=== PATIENT | female | born 1940 | race Caucasian/White ===

== ENCOUNTER 2016-08-15 23:00 | Emergency (ER) | payer MEDICARE ==
[2016-08-16 00:30] LABS: Basophils % (Auto) 0.8 % (0.0-1.8); Eosinophils % (Auto) 3.7 % (0.0-4.3); Hematocrit 41.5 % (30.3-42.9); Hemoglobin 13.7 gm/dl (10.1-14.3); Mean Corpuscular HGB Conc 33 % (30-34); Mean Corpuscular Hemoglobin 31 pg (28-32); Mean Corpuscular Volume 93 fl (79-97); Platelet Count 204 K/mm3 (140-440); Red Blood Count 4.46 M/mm3 (3.65-5.03); Red Cell Distribution Width 13.1 % (13.2-15.2); White Blood Count 5.8 K/mm3 (4.5-11.0)
[2016-08-16 00:38] LABS: Anion Gap 14 mmol/L; BUN/Creatinine Ratio 21.42; Blood Urea Nitrogen 15 mg/dL (7-17); Calcium 9.1 mg/dL (8.4-10.2); Carbon Dioxide 27 mmol/L (22-30); Chloride 99.9 mmol/L (98-107); Glucose 114 mg/dL (65-100); Potassium 4.3 mmol/L (3.6-5.0); Sodium 137 mmol/L (137-145)
[2016-08-16 01:30] LABS: Bilirubin,Urine NEG (Negative); Blood,Urine SM (Negative); Ketones,Urine NEG (Negative); Leukocyte Esterase,Urine TR (Negative); Nitrite,Urine NEG (Negative); Protein,Urine <15 mg/dL mg/dL (Negative); Urobilinogen,Urine < 2.0 mg/dL (<2.0)
--- NOTE | 2016-08-16 02:32 | Emergency Department Report ---
ED Chest Pain HPI - General Chief Complaint: Chest Pain Stated Complaint: COUGH/FATIGUE Time Seen by Provider: 08/16/16 02:01 Source: patient, family Mode of arrival: Ambulatory Limitations: Language Barrier - History of Present Illness Initial Comments: This is a 75-year-old woman with one-week history of cough. She does occasionally get chest pains with the cough. She denies any fevers. She sometimes has some mucous productivity with the cough. She has trialed some different cough remedies [id number] without significant improvement. She is still taking by mouth well. She still keeping up with activities in general. She denies any prior cardiac history. Does not smoke. No diabetes. Does have undiagnosed hypertension according to family. States that she was on amlodipine in the past for her hypertension. Is asking for another prescription of this. Denies any throat pain denies any congestion otherwise. - Related Data Previous Rx's Medication Instructions Recorded Last Taken Type Levofloxacin [Levaquin TAB] 750 mg PO DAILY #5 tablet 09/26/15 Unknown Rx Azithromycin [Zithromax Z-CHACORTA] 1 dose PO DAILY 5 Days 03/28/16 Unknown Rx Benzonatate [Tessalon Perles] 100 mg PO Q6H PRN #30 capsule 03/28/16 Unknown Rx Ibuprofen [Motrin] 400 mg PO Q8H PRN #30 tablet 03/28/16 Unknown Rx traMADol [Ultram 50 MG tab] 50 mg PO Q6HR PRN #20 tablet 03/28/16 Unknown Rx ALBUTEROL Inhaler [ProAir HFA 2 puff IH QID PRN #1 inhalation 08/16/16 Unknown Rx Inhaler] amLODIPine [Norvasc] 5 mg PO QDAY #30 tablet 08/16/16 Unknown Rx Allergies Allergy/AdvReac Type Severity Reaction Status Date / Time No Known Allergies Allergy Verified 09/23/15 16:00 VALDEZ score - Valdez Score Age > 65: (1) Yes Aspirin use within the Past 7 Days: (0) No 3 or more CAD Risk Factors: (0) No 2 or more Angina events in past 24 hrs: (1) Yes Known CAD with more than 50% Stenosis: (0) No Elevated Cardiac Markers: (0) No ST Deviation Greater than 0.5mm: (0) No VALDEZ Score: 2 ED Review of Systems ROS: Stated complaint: COUGH/FATIGUE Other details as noted in HPI Comment: All other systems reviewed and negative Constitutional: denies: chills, fever Eyes: denies: eye pain, eye discharge, vision change ENT: denies: ear pain, throat pain Respiratory: cough. denies: shortness of breath, wheezing Cardiovascular: chest pain. denies: palpitations Endocrine: no symptoms reported Gastrointestinal: denies: abdominal pain, nausea, diarrhea Genitourinary: denies: urgency, dysuria, discharge Musculoskeletal: denies: back pain, joint swelling, arthralgia Skin: denies: rash, lesions Neurological: denies: headache, weakness, paresthesias Psychiatric: denies: anxiety, depression Hematological/Lymphatic: denies: easy bleeding, easy bruising ED Past Medical Hx - Past Medical History Previous Medical History?: Yes Hx Hypertension: Yes Hx COPD: Yes Hx Tuberculosis: Yes Additional medical history: Hx. of TB 20 years ago - Surgical History Hx Cholecystectomy: Yes Additional Surgical History: Right lung procedure - Social History Smoking Status: Never Smoker Substance Use Type: None - Medications Home Medications: Home Medications Medication Instructions Recorded Confirmed Last Taken Type Levofloxacin [Levaquin TAB] 750 mg PO DAILY #5 tablet 09/26/15 Unknown Rx Azithromycin [Zithromax Z-CHACORTA] 1 dose PO DAILY 5 Days 03/28/16 Unknown Rx Benzonatate [Tessalon Perles] 100 mg PO Q6H PRN #30 capsule 03/28/16 Unknown Rx Ibuprofen [Motrin] 400 mg PO Q8H PRN #30 tablet 03/28/16 Unknown Rx traMADol [Ultram 50 MG tab] 50 mg PO Q6HR PRN #20 tablet 03/28/16 Unknown Rx ALBUTEROL Inhaler [ProAir HFA 2 puff IH QID PRN #1 inhalation 08/16/16 Unknown Rx Inhaler] amLODIPine [Norvasc] 5 mg PO QDAY #30 tablet 08/16/16 Unknown Rx ED Physical Exam - General Limitations: Language Barrier General appearance: alert, in no apparent distress - Head Head exam: Present: atraumatic, normocephalic - Eye Eye exam: Present: normal appearance, EOMI. Absent: scleral icterus - ENT ENT exam: Present: normal exam, normal orophraynx, mucous membranes moist, other (no pharyngeal erythema) - Neck Neck exam: Present: normal inspection, full ROM. Absent: tenderness, meningismus, lymphadenopathy - Respiratory Respiratory exam: Present: other (soft end expiratory crackles diffusely. With good air movement noted.). Absent: respiratory distress - Cardiovascular Cardiovascular Exam: Present: regular rate, normal rhythm. Absent: tachycardia , systolic murmur, diastolic murmur, rubs, gallop - GI/Abdominal GI/Abdominal exam: Present: soft, normal bowel sounds. Absent: tenderness, guarding - Extremities Exam Extremities exam: Present: normal inspection, full ROM, other (equal distal radial pulses bilaterally). Absent: tenderness, pedal edema, calf tenderness - Back Exam Back exam: Present: normal inspection. Absent: tenderness, CVA tenderness (R), CVA tenderness (L) - Neurological Exam Neurological exam: Present: alert, oriented X3, normal gait - Psychiatric Psychiatric exam: Present: normal affect, normal mood - Skin Skin exam: Present: warm, dry, intact, normal color. Absent: rash ED Course Vital Signs 08/15/16 08/16/16 08/16/16 23:21 02:04 02:05 Temperature 98.8 F 98.4 F Pulse Rate 103 H 91 H Pulse Rate [ Anterior Bilateral Throughout] Respiratory 18 20 20 Rate Respiratory Rate [Anterior Bilateral Throughout] Blood Pressure 162/93 Blood Pressure 174/96 [Left] O2 Sat by Pulse 96 97 97 Oximetry 08/16/16 08/16/16 08/16/16 02:56 03:04 03:05 Temperature Pulse Rate Pulse Rate [ 89 86 Anterior Bilateral Throughout] Respiratory Rate Respiratory 21 18 Rate [Anterior Bilateral Throughout] Blood Pressure Blood Pressure [Left] O2 Sat by Pulse 97 Oximetry 08/16/16 03:41 Temperature 98.4 F Pulse Rate 89 Pulse Rate [ Anterior Bilateral Throughout] Respiratory 20 Rate Respiratory Rate [Anterior Bilateral Throughout] Blood Pressure Blood Pressure 165/90 [Left] O2 Sat by Pulse 98 Oximetry - Reevaluation(s) Reevaluation #1: 08/16/16 02:02 ECG at 2340 with sinus rhythm at 96 bpm with a normal UT and QRS. There is mild left atrial enlargement abnormalities. Nonspecific ST-T wave changes noted as well. No acute STEMI. Reevaluation #2: 08/16/16 19:24 ECG is normal here. Enzymes are negative as well. Electrolyte studies are unremarkable. CBC is normal as well. Patient is noted to have mildly elevated high blood pressure here. I did have conversation with family and I'm happy to write for amlodipine for the time being. Patient does not currently have a physician she is following with. I did strongly encourage this for good continuity of care. Chest x-ray is unremarkable here. I am strongly suspicious of bronchitis as etiology for patient's cough. There may be an allergic component as well. I am more inclined to suspect bronchitis however. Patient was given albuterol treatment here with moderate subjective improvement and resolution of cough. I will write for albuterol inhaler for home as well. I did indicate that this is a viral etiology and that antibiotics are not helpful with it. Family is asking specifically regarding steroids. I'm a little bit cautious given the patient's age and condition this time to write for the steroids. I do not feel that she will get significant benefit from them at this time. I do not have a suspicion for ACS pathology or heart related pain as etiology for her chest pain. I suspect is due to the coughing. Safe for home ED Medical Decision Making - Lab Data Result diagrams: 08/16/16 00:03 08/16/16 00:03 - Radiology Data interpreted by me: negative Critical care attestation.: If time is entered above; I have spent that time in minutes in the direct care of this critically ill patient, excluding procedure time. ED Disposition Clinical Impression: Bronchitis Hypertension Qualifiers: Hypertension type: essential hypertension Qualified Code(s): I10 - Essential ( primary) hypertension Disposition: DISCHARGED TO HOME OR SELFCARE Is pt being admited?: No Does the pt Need Aspirin: No Condition: Stable Instructions: Acute Bronchitis (ED), Hypertension (ED) Prescriptions: ALBUTEROL Inhaler [ProAir HFA Inhaler] 2 puff IH QID PRN #1 inhalation PRN Reason: Shortness Of Breath amLODIPine [Norvasc] 5 mg PO QDAY #30 tablet Referrals: ARIELLA GIL MD [Primary Care Provider] - 3-5 Days [facility] [Provider Group] - 3-5 Days Time of Disposition: 02:56
[2016-08-16] MEDS ORDERED: PROVENTIL IH ONE (02:39)
[2016-08-16 03:42] VITALS: BP 165/90
--- NOTE | 2016-08-16 09:33 | XRay Report ---
CHEST 2 VIEWS INDICATION: Shortness of breath. Dry cough for 1-2 weeks. History of pneumonia. COMPARISON: 03/28/2016 FINDINGS: PA and lateral chest radiographs again demonstrate normal cardiomediastinal silhouette, aortic atherosclerotic calcifications, patchy right upper lobe scarring, cholecystectomy clips and demineralized bones with thoracic spondylosis. Clear, well-expanded remainder lungs. CONCLUSION: No acute chest process or significant interval change, as described. Thank you for the opportunity to participate in this patient's care.
== END 2016-08-16 03:45 | disposition home or self-care (01) ==
LOC: ED 23:00
DX: J40 Bronchitis, not specified as acute or chronic (principal); I10 Essential (primary) hypertension; J44.9 Chronic obstructive pulmonary disease, unspecified
CPT/HCPCS: 36415; 71020; 80048; 81001; 84484; 85025; 93005; 93010; 94640; 99285

== ENCOUNTER 2016-09-17 13:18 | Outpatient (CLI) | payer MEDICARE ==
--- NOTE | 2016-09-17 14:41 | Mammography Report ---
BONE DENSITY STUDY: Postmenopausal osteoporosis. DEFINITIONS: BMD = Bone Mineral Density T-score = BMD related to mean peak bone mass of young adult (mean expressed in Standard Deviation) Z-score = Age matched BMD expressed in SD World Health Organization (WHO) Diagnostic Criteria Normal T-score > -1 SD Osteopenia T-score between -1 and -2.4 SD Osteoporosis T-score -2.5 SD or below FINDINGS: The weighted average BMD of lumbar spine L1-L3 is 0.787 with a T-score of -2.1. The L3 BMD is 0.792 with a T. value score of -2.7. L4 sclerosis is omitted. The weighted average BMD of the right hip is 0.714 with a T-score of -1.9. The femoral neck BMD is 0.537 with a T. value score of -2.8. Compared to the patient's prior examination of February 2015 has been generalized improvement in the BMD of the lumbar spine with mild worsening of the right hip. IMPRESSION: The patient's average T-score is diagnostic for osteopenia and average relative risk for fracture. NOTE: BMD is not the only risk factor for fracture; also consider factors such as the patient's age, risk of falling, previous osteoporotic fracture, family history of osteoporotic fractures, current smoker, and low body weight. Duncan's triangle is a region of interest in femur, predominantly of trabecular bone. It is not a true anatomic site, and ISCD does not recommend its use clinically.
--- NOTE | 2016-09-17 14:43 | Mammography Report ---
Bilateral mammogram: Compared to 03/06/15. CAD study utilized. Findings: Heterogeneous breast parenchyma bilaterally. No mass or microcalcification. Benign calcification right breast. Benign axillary nodes. Impression: Benign findings. Annual followup recommended. BI-RADS CATEGORY: 2 = Benign ACR BI-RADS MAMMOGRAPHIC CODES: 0 = Needs additional imaging evaluation; 1 = Negative; 2 = Benign; 3 = Probably benign; 4 = Suspicious; 5 = Malignant; 6 = Known biopsy-proven malignancy COMMENT: 1. Dense breast tissue, i.e., adenosis, fibrocystic changes, etc., may obscure an underlying neoplasm. 2. Approximately 10% of cancers are not detected with mammography. 3. A negative mammography report should not delay biopsy if a clinically suspicious mass is present. COMMENT: Patient follow-up letters are generated in [email or web address].
== END 2016-09-17 13:19 | disposition home or self-care (01) ==
LOC: MAMMO 13:18
DX: Z12.31 Encounter for screening mammogram for malignant neoplasm of breast (principal); M85.80 Other specified disorders of bone density and structure, unspecified site
CPT/HCPCS: 77080; G0202; 77067

== ENCOUNTER 2016-09-23 11:44 | Day surgery (SDC) | payer MEDICARE ==
[~2016-09-23 11:44] MED LIST: IOPIDINE ONE; IOPIDINE OS ONE; MYDRIACYL ONE; MYDRIACYL OS ONE; NEOFRIN ONE; NEOFRIN OS ONE
[2016-09-23] MEDS ORDERED: MYDRIACYL OS ONE (12:23)
[2016-09-23] MEDS ORDERED: IOPIDINE OS ONE (12:23)
[2016-09-23] MEDS ORDERED: NEOFRIN OS ONE (12:23)
[2016-09-23 12:44] VITALS: BP 110/60
== END 2016-09-23 11:45 | disposition home or self-care (01) ==
LOC: OR 11:44
PROVIDERS: ATTEND Specialist
DX: H26.492 Other secondary cataract, left eye (principal); I10 Essential (primary) hypertension; J44.1 Chronic obstructive pulmonary disease with (acute) exacerbation; J45.909 Unspecified asthma, uncomplicated; Z86.718 Personal history of other venous thrombosis and embolism; Z87.01 Personal history of pneumonia (recurrent)

== ENCOUNTER 2018-06-05 09:48 | Outpatient (CLI) | payer MEDICARE ==
--- NOTE | 2018-06-05 11:28 | Mammography Report ---
BILATERAL MAMMOGRAM: FINDINGS: The breast tissue is heterogeneously dense, which could obscure detection of small masses (approximately 50%-75% glandular). No mass, distortion, suspicious calcification, or skin change is seen. There are no significant changes compared to her prior examination in September of 2016. CAD was utilized. IMPRESSION: Negative mammogram. There is no mammographic evidence of malignancy. RECOMMENDATION: Follow-up per ACS guidelines. BI-RADS CATEGORY: 1 = Negative ACR BI-RADS MAMMOGRAPHIC CODES: 0 = Needs additional imaging evaluation; 1 = Negative; 2 = Benign; 3 = Probably benign; 4 = Suspicious; 5 = Malignant; 6 = Known biopsy-proven malignancy COMMENT: 1. Dense breast tissue, i.e., adenosis, fibrocystic changes, etc., may obscure an underlying neoplasm. 2. Approximately 10% of cancers are not detected with mammography. 3. A negative mammography report should not delay biopsy if a clinically suspicious mass is present. COMMENT: Patient follow-up letters are generated in [employer].
== END 2018-06-05 09:49 | disposition home or self-care (01) ==
LOC: MAMMO 09:48
PROVIDERS: ATTEND Internal Medicine
DX: Z12.31 Encounter for screening mammogram for malignant neoplasm of breast (principal); I10 Essential (primary) hypertension; J44.9 Chronic obstructive pulmonary disease, unspecified; Z90.710 Acquired absence of both cervix and uterus; Z90.49 Acquired absence of other specified parts of digestive tract
CPT/HCPCS: 77067

== ENCOUNTER 2018-07-22 21:23 | Emergency (ER) | payer MEDICARE ==
[2018-07-22] MEDS ORDERED: NACL 0.9% 1000 ML 1,000 ML IV ONE (22:02)
[2018-07-22 22:39] LABS: Basophils # (Auto) 0.1 K/mm3 (0.0-0.1); Basophils % (Auto) 0.7 % (0.0-1.8); Eosinophils # (Auto) 0.3 K/mm3 (0.0-0.4); Hematocrit 41.1 % (30.3-42.9); Lymphocytes # (Auto) 2.9 K/mm3 (1.2-5.4); Lymphocytes % (Auto) 33.8 % (13.4-35.0); Mean Corpuscular HGB Conc 34 % (30-34); Mean Corpuscular Volume 93 fl (79-97); Monocytes # (Auto) 0.8 K/mm3 (0.0-0.8); Platelet Count 234 K/mm3 (140-440); Red Blood Count 4.43 M/mm3 (3.65-5.03); Red Cell Distribution Width 12.7 % (13.2-15.2)
[2018-07-22 22:55] LABS: Alanine Aminotransferase 13 units/L (7-56); Albumin 4.1 g/dL (3.9-5); BUN/Creatinine Ratio 18; Blood Urea Nitrogen 14 mg/dL (7-17); Calcium 9.1 mg/dL (8.4-10.2); Hemolysis Index 14
[2018-07-23 00:17] LABS: Bilirubin,Urine NEG (Negative); Blood,Urine NEG (Negative); Color,Urine Straw (Yellow); Mucus,Urine FEW /HPF; Protein,Urine <15 mg/dL mg/dL (Negative); Urobilinogen,Urine < 2.0 mg/dL (<2.0)
[2018-07-23] MEDS ORDERED: DELTASONE PO ONE (00:36)
[2018-07-23] MEDS ORDERED: DUONEB *Not for PRN Use IH ONE (00:36)
--- NOTE | 2018-07-23 00:36 | Emergency Department Report ---
ED Abdominal Pain HPI - General Chief Complaint: Abdominal Pain Stated Complaint: STOMACH PAIN Time Seen by Provider: 07/23/18 00:23 Source: patient, family Mode of arrival: Ambulatory Limitations: Language Barrier - History of Present Illness Initial Comments: Mrs. Welch is a healthy 77 yo Kyrgyz speaking female who presents with cough and abdominal pain. She has had lower abdominal pain for one month. Mild in severity. No diarrhea/constipation/vomiting/dysuria. Has had dry cough for several weeks. Follow by PCP Lucas Kraft. According to kimberly, no significant past medical hx. Only takes Vitamin D. No prescribed medications. Mrs. Welch lives alone. Niece at the bedside provided interpretation. Kimberly lives next door. MD Complaint: abdominal pain -: Gradual, month(s) (1) Location: LLQ, RLQ Radiation: none Migration to: no migration Severity scale (0 -10): 7 Quality: aching Consistency: intermittent Improves With: nothing Worsens With: nothing Associated Symptoms: denies other symptoms - Related Data Previous Rx's Medication Instructions Recorded Last Taken Type Doxycycline Hyclate [Doxycycline 100 mg PO Q12HR 7 Days #14 tab 07/23/18 Unknown Rx Hyclate TAB] predniSONE [Deltasone] 20 mg PO QDAY 5 Days #5 tab 07/23/18 Unknown Rx Allergies Allergy/AdvReac Type Severity Reaction Status Date / Time No Known Allergies Allergy Verified 09/23/15 16:00 ED Review of Systems ROS: Stated complaint: STOMACH PAIN Other details as noted in HPI Comment: All other systems reviewed and negative Constitutional: denies: fever, malaise Respiratory: cough Gastrointestinal: abdominal pain ED Past Medical Hx - Past Medical History Previous Medical History?: Yes Hx Hypertension: Yes Hx COPD: Yes Hx Tuberculosis: Yes Additional medical history: Hx. of TB 20 years ago - Surgical History Hx Cholecystectomy: Yes Additional Surgical History: Right lung procedure - Social History Smoking Status: Never Smoker Substance Use Type: None - Medications Home Medications: Home Medications Medication Instructions Recorded Confirmed Last Taken Type Doxycycline Hyclate [Doxycycline 100 mg PO Q12HR 7 Days #14 tab 07/23/18 Unknown Rx Hyclate TAB] predniSONE [Deltasone] 20 mg PO QDAY 5 Days #5 tab 07/23/18 Unknown Rx ED Physical Exam - General Limitations: Language Barrier General appearance: alert, in no apparent distress - Head Head exam: Present: atraumatic, normocephalic - Eye Eye exam: Present: normal appearance - ENT ENT exam: Present: mucous membranes moist - Neck Neck exam: Present: normal inspection, full ROM - Respiratory Respiratory exam: Present: normal lung sounds bilaterally. Absent: respiratory distress, wheezes, rales, rhonchi - Cardiovascular Cardiovascular Exam: Present: regular rate, normal rhythm, normal heart sounds. Absent: systolic murmur, diastolic murmur, rubs, gallop - GI/Abdominal GI/Abdominal exam: Present: soft, normal bowel sounds. Absent: distended, tenderness, guarding, rebound - Extremities Exam Extremities exam: Present: normal inspection - Back Exam Back exam: Present: normal inspection - Neurological Exam Neurological exam: Present: alert, oriented X3 - Psychiatric Psychiatric exam: Present: normal affect, normal mood - Skin Skin exam: Present: warm, dry, intact, normal color. Absent: rash ED Course Vital Signs 07/22/18 07/23/18 07/23/18 21:29 00:38 00:40 Temperature 98.2 F Pulse Rate 87 82 Respiratory 18 24 17 Rate Blood Pressure 161/81 O2 Sat by Pulse 97 98 98 Oximetry 07/23/18 00:46 Temperature Pulse Rate 82 Respiratory 24 Rate Blood Pressure 173/90 O2 Sat by Pulse 97 Oximetry ED Medical Decision Making - Lab Data Result diagrams: 07/22/18 22:22 07/22/18 22:22 Laboratory Results - last 24 hr 07/22/18 07/22/18 07/22/18 22:22 22:22 23:30 WBC 8.5 RBC 4.43 Hgb 14.0 Hct 41.1 MCV 93 MCH 32 MCHC 34 RDW 12.7 L Plt Count 234 Lymph % (Auto) 33.8 [place] % (Auto) 9.0 H Eos % (Auto) 4.0 Baso % (Auto) 0.7 Lymph # 2.9 [place] # 0.8 Eos # 0.3 Baso # 0.1 Seg Neutrophils % 52.5 Seg Neutrophils # 4.4 Sodium 139 Potassium 4.6 Chloride 102.6 Carbon Dioxide 26 Anion Gap 15 BUN 14 Creatinine 0.8 Estimated GFR > 60 BUN/Creatinine Ratio 18 Glucose 101 H Calcium 9.1 Total Bilirubin 0.20 AST 20 ALT 13 Alkaline Phosphatase 62 Total Protein 7.4 Albumin 4.1 Albumin/Globulin Ratio 1.2 Urine Color Straw Urine Turbidity Clear Urine pH 7.0 Ur Specific Emily 1.013 Urine Protein <15 mg/dl Urine Glucose (UA) Neg Urine Ketones Neg Urine Blood Neg Urine Nitrite Neg Urine Bilirubin Neg Urine Urobilinogen < 2.0 Ur Leukocyte Esterase Sm Urine WBC (Auto) 5.0 Urine RBC (Auto) 1.0 Urine Mucus Few - Radiology Data Radiology results: report reviewed CT chest: 12 mm density possible fibrotic change will need follow-up CT abdomen and pelvis without acute process. - Medical Decision Making 1. persistent cough. According to EMR, Mrs. Welch has hx of COPD. She will benefit from antibiotics and steroids. rx: doxycycline, prednisone 2. abdominal pain for one month, cbc, bmp, ua WNL, CT A/P without acute process 3. Lung nodule: Patient and niece were made aware. They both understand the need for follow-up. Critical care attestation.: If time is entered above; I have spent that time in minutes in the direct care of this critically ill patient, excluding procedure time. ED Disposition Clinical Impression: COPD exacerbation, Lung nodule, Abdominal pain Disposition: DC-01 TO HOME OR SELFCARE Is pt being admited?: No Does the pt Need Aspirin: No Condition: Stable Instructions: Abdominal Pain (ED), Chronic Obstructive Pulmonary Disease (ED) Prescriptions: predniSONE [Deltasone] 20 mg PO QDAY 5 Days #5 tab Doxycycline Hyclate [Doxycycline Hyclate TAB] 100 mg PO Q12HR 7 Days #14 tab Referrals: HASEEB CHEENY MD [Primary Care Provider] - 3-5 Days
[2018-07-23] MEDS ORDERED: VIBRAMYCIN PO ONE (00:37)
[2018-07-23 01:02] VITALS: BP 173/90
--- NOTE | 2018-07-23 02:03 | Cat Scan Report ---
PROCEDURE: CT ABDOMEN PELVIS W CON TECHNIQUE: Routine axial imaging was obtained of the abdomen and pelvis following the intravenous in jection of iodinated contrast. Sagittal and coronal reconstructions were reviewed. HISTORY: abdominal pain COMPARISONS: No previous studies available for comparison. FINDINGS: The lung bases are negative for infiltrates or effusions. The gallbladder has been removed. The biliary tree appears normal. The liver is normal in size and re veals a 6.6 mm low density focus in the right hepatic lobe. This may represent a small cyst. It is to o small to characterize. The pancreas, spleen, and adrenal glands appear normal. The kidneys enhance normally. There is no evidence of hydronephrosis. The abdominal aorta is normal in caliber. The álvaro l vein enhances normally. The appendix appears normal. The bowel loops are normal in caliber and cour se. There is a moderate amount of retained fecal content. There is no evidence of free fluid or adeno sarahi. In the pelvis the uterus and bladder appear normal. The skeletal structures reveal multilevel disc degeneration in the lumbar spine. IMPRESSION: Cholecystectomy. No acute process in the abdomen and pelvis. Normal appendix. Multilevel disc degeneration in the lumbar spine.. This document is electronically signed by Sebastian Thompson MD., July 23 2018 01:59:37 AM ET
--- NOTE | 2018-07-23 02:25 | Cat Scan Report ---
PROCEDURE: CT CHEST W CON TECHNIQUE: Computerized axial tomography of the chest was performed during the IV injection of iodin ated nonionic contrast. CT DOSE LENGTH PRODUCT: mGycm HISTORY: cough for one month COMPARISONS: None . FINDINGS: Heart and pericardium: Normal. Thoracic aorta: Normal. Pulmonary vasculature: Normal. Lymph nodes: No enlarged thoracic lymph nodes. Lungs: The lungs are expanded. There are no acute infiltrates. There are fibrotic changes at the ab g apices greater on the right. There are calcifications in the right upper lung indicating probable o ld granulomatous disease. There is a 12 mm regulated density in the right upper lung on image #30 whi ch could be fibrosis. Neoplasm considered unlikely but short-term follow-up repeat CT suggested. Pleural space: There is no pleural effusion or pneumothorax.. Musculoskeletal structures: No significant abnormality. Upper abdominal structures: There has been cholecystectomy.. There are calcifications in the subcutaneous fat of the left side of the neck and left supraclavicula r region suggesting possible old soft tissue injury or infection. There is no discrete mass. IMPRESSION: The heart size is normal. The lungs are expanded. There are no acute infiltrates. There are fibrotic changes at the lung apices greater on the right. There are calcifications in the r ight upper lung indicating probable old granulomatous disease. There is a 12 mm regulated density in the right upper lung on image #30 which could be fibrosis. Neoplasm considered unlikely but short-ter m follow-up repeat CT suggested. There is no pleural effusion or pneumothorax.. There are calcifications in the subcutaneous fat of the left side of the neck and left supraclavicula r region suggesting possible old soft tissue injury or infection. There is no discrete mass. This document is electronically signed by Terry Lawton MD., July 23 2018 02:22:54 AM ET
== END 2018-07-23 03:19 | disposition home or self-care (01) ==
LOC: ED 21:23
DX: J44.1 Chronic obstructive pulmonary disease with (acute) exacerbation (principal); R91.1 Solitary pulmonary nodule; R10.31 Right lower quadrant pain; R10.32 Left lower quadrant pain; I10 Essential (primary) hypertension; Z90.49 Acquired absence of other specified parts of digestive tract
CPT/HCPCS: 36415; 71260; 74177; 80053; 81001; 85025; 99284; J7512; Q9967

== ENCOUNTER 2021-08-01 21:23 | Emergency (ER) | payer MEDICARE ==
--- NOTE | 2021-08-01 22:32 | Emergency Department Report ---
ED GI Bleed HPI - General Chief complaint: GI Bleed Stated complaint: COUGHING UP BLOOD Time Seen by Provider: 08/01/21 21:41 Source: patient Mode of arrival: Ambulatory Limitations: Language Barrier - History of Present Illness Initial comments: This 80-year-old female who has a history of hypertension had 2 episodes of small emesis/spitting up what appeared to be coffee-ground material. The patient does not have a history of ulcer disease but is taking metoprolol for hypertension. She currently denies any abdominal pain currently is not nauseous and has not vomited since the 2 episodes in the morning. The patient denies headache dizziness weakness. - Related Data Previous Rx's Medication Instructions Recorded Last Taken Type Doxycycline Hyclate [Doxycycline 100 mg PO Q12HR 7 Days #14 tab 07/23/18 Unknown Rx Hyclate TAB] predniSONE [Deltasone] 20 mg PO QDAY 5 Days #5 tab 07/23/18 Unknown Rx Lansoprazole [Prevacid 24Hr] 15 mg PO QDAY #14 tab 08/02/21 Unknown Rx Ondansetron (Nf) [Zofran TAB] 8 mg PO Q8HR PRN #10 tablet 08/02/21 Unknown Rx Allergies Allergy/AdvReac Type Severity Reaction Status Date / Time No Known Allergies Allergy Verified 09/23/15 16:00 ED Review of Systems ROS: Stated complaint: COUGHING UP BLOOD Other details as noted in HPI ED Past Medical Hx - Past Medical History Previous Medical History?: Yes Hx Hypertension: Yes Hx COPD: Yes Hx Tuberculosis: Yes Additional medical history: Hx. of TB 20 years ago. Hepatitis B. High Cholesterol - Surgical History Past Surgical History?: Yes Hx Cholecystectomy: Yes Additional Surgical History: Right lung procedure - Social History Smoking Status: Never Smoker Substance Use Type: None - Medications Home Medications: Home Medications Medication Instructions Recorded Confirmed Last Taken Type Doxycycline Hyclate [Doxycycline 100 mg PO Q12HR 7 Days #14 tab 07/23/18 Unknown Rx Hyclate TAB] predniSONE [Deltasone] 20 mg PO QDAY 5 Days #5 tab 07/23/18 Unknown Rx Lansoprazole [Prevacid 24Hr] 15 mg PO QDAY #14 tab 08/02/21 Unknown Rx Ondansetron (Nf) [Zofran TAB] 8 mg PO Q8HR PRN #10 tablet 08/02/21 Unknown Rx ED Physical Exam - General Limitations: Language Barrier - Eye Eye exam: Present: normal appearance, PERRL, EOMI, other (Conjunctiva pink bilaterally) Pupils: Present: normal accommodation - ENT ENT exam: Present: mucous membranes moist - Neck Neck exam: Present: normal inspection - Respiratory Respiratory exam: Present: normal lung sounds bilaterally. Absent: respiratory distress - Cardiovascular Cardiovascular Exam: Present: regular rate, normal rhythm. Absent: systolic murmur, diastolic murmur, rubs, gallop - GI/Abdominal GI/Abdominal exam: Present: soft, normal bowel sounds. Absent: distended, tenderness - Rectal Rectal exam: Present: normal inspection, normal rectal tone (There is stool appears normal in color). Absent: black stool, bloody stool - Extremities Exam Extremities exam: Present: normal inspection, full ROM. Absent: pedal edema - Back Exam Back exam: Present: normal inspection, full ROM. Absent: tenderness, CVA tenderness (R), CVA tenderness (L) - Neurological Exam Neurological exam: Present: alert, oriented X3 - Psychiatric Psychiatric exam: Present: normal affect, normal mood - Skin Skin exam: Present: warm, dry, intact, normal color. Absent: rash ED Course Vital Signs 08/01/21 08/01/21 08/01/21 21:28 22:07 22:54 Temperature 98.3 F 98.5 F Pulse Rate 82 64 66 Respiratory 18 24 21 Rate Blood Pressure 151/68 Blood Pressure 155/72 150/57 [Right] O2 Sat by Pulse 96 97 97 Oximetry 08/02/21 08/02/21 00:21 01:34 Temperature Pulse Rate 80 75 Respiratory 17 19 Rate Blood Pressure Blood Pressure 168/75 142/74 [Right] O2 Sat by Pulse 98 96 Oximetry ED Medical Decision Making - Lab Data Result diagrams: 08/01/21 22:18 08/01/21 22:45 - Medical Decision Making The patient appears to be quite stable. She has not vomited since 3:00 in the morning. A stool sample was sent to the lab for evaluation. Critical care attestation.: If time is entered above; I have spent that time in minutes in the direct care of this critically ill patient, excluding procedure time. ED Disposition Clinical Impression: Gastritis Qualifiers: Gastritis type: unspecified gastritis Chronicity: acute Gastritis bleeding: without bleeding Qualified Code(s): K29.00 - Acute gastritis without bleeding Disposition: HOME / SELF CARE / HOMELESS Is pt being admited?: No Does the pt Need Aspirin: No Condition: Stable Instructions: Gastritis, Adult, Iqnn-da-Dari Additional Instructions: . Medication as prescribed and return to the emergency department if any problems. Prescriptions: Lansoprazole [Prevacid 24Hr] 15 mg PO QDAY #14 tab Ondansetron (Nf) [Zofran TAB] 8 mg PO Q8HR PRN #10 tablet PRN Reason: Nausea Referrals: CLAUDIA ABEL MD [Primary Care Provider] - 3-5 Days Forms: Accompanied Note
[2021-08-01 23:33] LABS: Basophils % (Auto) 0.6 % (0.0-1.8); Eosinophils # (Auto) 0.2 K/mm3 (0.0-0.4); Hemoglobin 13.8 gm/dl (10.1-14.3); Lymphocytes # (Auto) 2.2 K/mm3 (1.2-5.4); Lymphocytes % (Auto) 28.8 % (13.4-35.0); Mean Corpuscular HGB Conc 33 % (30-34); Mean Corpuscular Volume 95 fl (79-97); Monocytes # (Auto) 0.8 K/mm3 (0.0-0.8); Monocytes % (Auto) 10.3 % (0.0-7.3); Platelet Count 203 K/mm3 (140-440); Red Blood Count 4.42 M/mm3 (3.65-5.03)
--- NOTE | 2021-08-01 23:40 | XRay Report ---
CHEST 1 VIEW INDICATION / CLINICAL INFORMATION: Spitting up blood. COMPARISON: Chest x-ray 08/15/2016 FINDINGS: SUPPORT DEVICES: None. HEART / MEDIASTINUM: No significant interval change. LUNGS / PLEURA: The lungs are clear. No pneumothorax. Faint calcifications possibly pleural based wit hin the right upper lung appear stable. ADDITIONAL FINDINGS: No significant additional findings. IMPRESSION: 1. Stable chest. No active cardiopulmonary disease. Signer Name: Tyree Rose II, MD Signed: 08/01/2021 11:35 PM Workstation Name: [id number]
[2021-08-01 23:46] LABS: Alanine Aminotransferase 14 units/L (7-56); Albumin 3.9 g/dL (3.9-5); Blood Urea Nitrogen 8 mg/dL (7-17); Calcium 8.6 mg/dL (8.4-10.2); Hemolysis Index 19
[2021-08-01 23:59] LABS: BUN/Creatinine Ratio 20
[2021-08-02 00:01] LABS: Blood Urea Nitrogen 18 mg/dL (7-17); Hemolysis Index 23
[2021-08-02 00:19] LABS: BUN/Creatinine Ratio 26
[2021-08-02 01:34] VITALS: BP 142/74
== END 2021-08-02 01:44 | disposition home or self-care (01) ==
LOC: ED 21:23
DX: K29.70 Gastritis, unspecified, without bleeding (principal); I10 Essential (primary) hypertension; Z90.49 Acquired absence of other specified parts of digestive tract
CPT/HCPCS: 36415; 71045; 80048; 80053; 82270; 85025; 99284

== ENCOUNTER 2022-01-09 11:04 | Inpatient (IN) | payer MEDICARE ==
[2022-01-09] MEDS ORDERED: SODIUM CHLORIDE 0.9% 1000 ML 1,000 ML IV ONE (11:48)
[2022-01-09] MEDS ORDERED: oxyCODONE /ACETAMINOPHEN 5-325MG TAB PO PRN (11:56)
[2022-01-09] MEDS ORDERED: ALBUTEROL 2.5 MG/3 ML NEBU IH PRN (11:56)
[2022-01-09] MEDS ORDERED: ONDANSETRON 4 MG/2 ML INJ IV PRN (11:56)
[2022-01-09] MEDS ORDERED: HYDROmorphone 0.5 MG/0.5 ML INJ IV PRN (11:56)
[2022-01-09] MEDS ORDERED: ACETAMINOPHEN 325 MG TAB PO PRN (11:56)
--- NOTE | 2022-01-09 11:56 | History and Physical Report ---
History of Present Illness Chief complaint: I feel dizzy, I also feel weak History of present illness: 81 YO Female with HTN, COPD presents to ED for evaluation. Patient reports "I feel dizzy and weak". Patient states that she has experienced dizziness and generalized weakness over the past 1 week with persistently worsening symptoms over the same timeframe. Patient knowledges decreased exercise tolerance, shortness of breath, and feeling as if she was going to pass out. EMS was notified and upon arrival the patient was found to be in distress with a heart rate in the 30s and subsequent transported to [facility] for further care and evaluation of the aforementioned symptoms. The patient was seen and evaluated in the emergency department. All lab and imaging studies reviewed. Patient found to have complete heart block as well as clinical symptoms consistent with diastolic CHF decompensation. Cardiology team consulted in ED. Patient taken urgently to [facility] for surgical intervention. Patient admitted to ICU due to increased risk of worsening symptoms and for medical stabilization. Patient denies fever, chills, chest pain, palpitation, productive cough, skin rash, recent contact, known exposure to COVID-19. Prior admission on 09/24/2015 reviewed. All medication listed at time of admission has been reconciled. Advanced care planning conducted in ED. Past History Past Medical History: COPD, hypertension, other (See HPI) Past Surgical History: cholecystectomy, Other (lung surgery) Social history: . denies: smoking, alcohol abuse, prescription drug abuse Family history: hypertension Medications and Allergies Allergies Allergy/AdvReac Type Severity Reaction Status Date / Time No Known Allergies Allergy Verified 01/09/22 11:12 Home Medications Medication Instructions Recorded Confirmed Last Taken Type Doxycycline Hyclate [Doxycycline 100 mg PO Q12HR 7 Days #14 tab 07/23/18 U nknown Rx Hyclate TAB] predniSONE [Deltasone] 20 mg PO QDAY 5 Days #5 tab 07/23/18 Unknown Rx Lansoprazole [Prevacid 24Hr] 15 mg PO QDAY #14 tab 08/02/21 Unknown Rx Ondansetron (Nf) [Zofran TAB] 8 mg PO Q8HR PRN #10 tablet 08/02/21 Unknown Rx Active Meds: Active Medications Dopamine HCl/Dextrose (Dopamine 800 Mg/D5w 250ml) 800 mg in 250 mls @ 0 mls/hr IV TITR ONE; Protocol Stop: 09/03/22 11:51 Sodium Chloride (Nacl 0.9% 1000 Ml) 1,000 mls @ 999 mls/hr IV BOLUS ONE Stop: 01/09/22 12:48 Review of Systems Constitutional: weakness, no weight loss, no weight gain Ears, nose, mouth and throat: no ear pain, no nasal congestion, no nasal discharge Cardiovascular: syncope, shortness of breath, dyspnea on exertion, decreased exercise tolerance Respiratory: no cough, no excessive sputum, no hemoptysis Gastrointestinal: no abdominal pain, no nausea, no diarrhea, no constipation Genitourinary Female: no pelvic pain, no flank pain, no dysuria, no urinary frequency, no urgency Rectal: no pain, no incontinence, no bleeding Musculoskeletal: no neck stiffness, no shooting arm pain, no arm numbness/tingling Integumentary: no rash, no pruritis, no redness, no wounds, no boils Neurological: no head injury, no paralysis, no parathesias, no tingling, no seizures, no syncope Psychiatric: no anxiety, no memory loss, no sleep disturbances, no hypersomnia, no change in appetite, no change in libido, no suicidal ideation Endocrine: no cold intolerance, no polyphagia, no polydipsia, no nocturia, no weight change Hematologic/Lymphatic: no easy bruising, no easy bleeding Allergic/Immunologic: no urticaria, no allergic rhinitis, no wheezing Exam - Constitutional Vitals: Temp Pulse Resp BP Pulse Ox 98.2 F 38 L 24 113/51 95 01/09/22 11:07 01/09/22 11:07 01/09/22 11:07 01/09/22 11:07 01/09/22 11:07 General appearance: Present: mild distress - EENT Eyes: Present: PERRL ENT: hearing intact, clear oral mucosa - Neck Neck: Present: supple, normal ROM - Respiratory Respiratory effort: normal Respiratory: bilateral: CTA - Cardiovascular Rhythm: other (Bradycardia) - Extremities Extremities: no ischemia Extremity abnormal: edema Peripheral Pulses: within normal limits - Abdominal General gastrointestinal: Present: soft, non-tender, non-distended, normal bowel sounds Female genitourinary: Present: normal - Integumentary Integumentary: Present: clear, dry, clammy - Musculoskeletal Musculoskeletal: generalized weakness - Psychiatric Psychiatric: appropriate mood/affect, intact judgment & insight - Neurologic Neurologic: CNII-XII intact, no focal deficits, moves all extremities, no gait normal Results - Labs CBC & Chem 7: 01/09/22 11:53 01/09/22 11:53 Assessment and Plan - Patient Problems (1) Complete heart block Current Visit: Yes Status: Acute Plan to address problem: Cardiology team consulted in ED. Patient taken urgently to [facility] was surgical intervention. Patient admitted to ICU status post temporary pacemaker placement. The high probability of a clinically significant, sudden or life threatening deterioration of the [cardiac, neuro, respiratory] system(s) required my full and direct attention, intervention and personal management. The aggregate critical care time was [68] minutes. This time is in addition to time spent performing reported procedures but includes the following: [x] Data Review and interpretation [x] Patient assessment and monitoring of vital signs [x] Documentation [x] Medication orders and management (2) COPD (chronic obstructive pulmonary disease) Current Visit: Yes Status: Acute Plan to address problem: Supplemental oxygen, no acute exacerbation at this time, supportive care. (3) Acute diastolic (congestive) heart failure Current Visit: Yes Status: Acute Plan to address problem: Strict I's/O, monitor urine output every shift, daily weight, afterload reduction, blood pressure control, echocardiogram ordered and pending at time of admission. (4) DVT prophylaxis Current Visit: Yes Status: Acute Plan to address problem: SCDs to bilateral lower extremities while in bed (5) Advance care planning Current Visit: Yes Status: Acute Plan to address problem: Disease education done, care plan discussed, diagnoses discussed, prognosis discussed, patient is full code. Patient acknowledges understanding and agreement with care plan, +30 minutes. (6) Preventative health care Current Visit: Yes Status: Acute Plan to address problem: Patient counseled regarding home safety precautions, risk factor reduction, compliance with outpatient medication, outpatient follow-up with primary care physician for all age and risk factor appropriate screening test. +30 minutes.
--- NOTE | 2022-01-09 11:59 | Emergency Department Report ---
ED Dizziness HPI - General Chief Complaint: Dizziness Stated Complaint: DIZZY/LOW HR Time Seen by Provider: 01/09/22 11:18 Source: EMS Mode of arrival: Stretcher Limitations: Language Barrier - History of Present Illness Initial Comments: 81-year-old female [place] with history of hypertension currently taking Toprol antihypertensive brought in by EMS with dizziness that started this morning progressively getting worse. According to patient everything was fine until the symptoms started. The family member reported that patient was out in the yard doing gardening yesterday throughout. No chest pain or shortness of breath reported. No fever or chills noted. Patient has history of hypertension and on unknown antihypertensive at this point. No other modifying or associated factors reported. Patient was reported by the family member that she was out in the yard throughout yesterday. - Related Data Previous Rx's Medication Instructions Recorded Last Taken Type Doxycycline Hyclate [Doxycycline 100 mg PO Q12HR 7 Days #14 tab 07/23/18 Unknown Rx Hyclate TAB] predniSONE [Deltasone] 20 mg PO QDAY 5 Days #5 tab 07/23/18 Unknown Rx Lansoprazole [Prevacid 24Hr] 15 mg PO QDAY #14 tab 08/02/21 Unknown Rx Ondansetron (Nf) [Zofran TAB] 8 mg PO Q8HR PRN #10 tablet 08/02/21 Unknown Rx Allergies Allergy/AdvReac Type Severity Reaction Status Date / Time No Known Allergies Allergy Verified 01/09/22 11:12 ED Review of Systems ROS: Stated complaint: DIZZY/LOW HR Other details as noted in HPI Comment: All other systems reviewed and negative Cardiovascular: palpitations, other (dizziness) ED Past Medical Hx - Past Medical History Hx Hypertension: Yes Hx COPD: Yes Hx Tuberculosis: Yes Additional medical history: Hx. of TB 20 years ago. Hepatitis B. High Cholesterol - Surgical History Hx Cholecystectomy: Yes Additional Surgical History: Right lung procedure - Social History Smoking Status: Never Smoker Substance Use Type: None - Medications Home Medications: Home Medications Medication Instructions Recorded Confirmed Last Taken Type Doxycycline Hyclate [Doxycycline 100 mg PO Q12HR 7 Days #14 tab 07/23/18 Unknown Rx Hyclate TAB] predniSONE [Deltasone] 20 mg PO QDAY 5 Days #5 tab 07/23/18 Unknown Rx Lansoprazole [Prevacid 24Hr] 15 mg PO QDAY #14 tab 08/02/21 Unknown Rx Ondansetron (Nf) [Zofran TAB] 8 mg PO Q8HR PRN #10 tablet 08/02/21 Unknown Rx ED Physical Exam - General Limitations: Language Barrier General appearance: alert, in no apparent distress - Head Head exam: Present: atraumatic, normal inspection - Eye Eye exam: Present: normal appearance Pupils: Present: normal accommodation - ENT ENT exam: Present: normal exam, normal orophraynx, mucous membranes dry - Neck Neck exam: Present: normal inspection, full ROM. Absent: tenderness - Respiratory Respiratory exam: Present: normal lung sounds bilaterally. Absent: respiratory distress, accessory muscle use - Cardiovascular Cardiovascular Exam: Present: bradycardia, irregular rhythm, other (possible complete block noted to be junctional with narrow QRS-- ) - Extremities Exam Extremities exam: Present: normal inspection, full ROM, normal capillary refill. Absent: tenderness, pedal edema - Back Exam Back exam: Absent: tenderness - Neurological Exam Neurological exam: Present: alert, oriented X3 - Psychiatric Psychiatric exam: Present: normal affect - Skin Skin exam: Present: warm, normal color ED Course Vital Signs 01/09/22 11:07 Temperature 98.2 F Pulse Rate 38 L Respiratory 24 Rate Blood Pressure 113/51 [Left] O2 Sat by Pulse 95 Oximetry - Reevaluation(s) Reevaluation #1: 01/09/22 12:10 Pt was to be started on transthoracic pacemaker but discouraged by Dr Araya and plans to have immediate temporary pacemaker in the OR. - Consultations Consultation #1: 01/09/22 12:09 Dr Araya the online activist credit collections manager consulted who plan to take patient to the OR immediately for temporary pacemaker. 01/09/22 12:10 Consultation #2: 01/09/22 12:09 Dr Sesay the hospitalist credit collections manager consulted who came to the ED and evaluate patient and accept pt for further evaluation and treatment ED Medical Decision Making - Lab Data Result diagrams: 01/09/22 11:53 - EKG Data -: EKG Interpreted by Me Rate: bradycardia - EKG Data 01/09/22 11:59 EKG shows junctional rhythm at a rate of 39 bpm with possible complete block with a narrow QRS complex - Medical Decision Making Brought in by EMS with dizziness and noted with likely/possible complete heart block with h/o hypertension taken Toprol which likely contributing to her noted slow heart rate-- but could not ruled out differential such as vertigo or seizure or CVA especially posterior stroke considering the presenting dizziness/vertigo, or symptomatic anemia, myocardial infarction, pulmonary embolism considering his recent long travels, anxiety, and hypothyroidism--in order to rule those out I will go ahead and order routine cardiopulmonary work- up that include troponin, EKG, chest x-ray, BNP, CKMB, and CBC, CMP, Urinalysis and thyroid panel for any correctable infectious process or electrolyte abnormality as a cause. Initial EKG noted with likely complete heart block with junctional rhythm with narrow QRS-- Pt has been given atropine 0.5 mg by the EMS and repeated in the ED as soon as the patient is attached to the monitor-- Washer Off Dr Araya consulted who came to the ED immediately. He suggested starting dopamine but ultimately will take patient to the OR to place temporary pacemaker. He was able to talk to the family member with power of civil rights attorney who gave him a go ahead with the procedure. Will continue this patient on the monitor and ivf ns 1L bolus at the point. Critical Care Time: Yes (60) Critical care time in (mins) excluding proc time.: 60 Critical care attestation.: If time is entered above; I have spent that time in minutes in the direct care of this critically ill patient, excluding procedure time. here with dizziness and noted with complete heart block with hypotension based on the diastolic pressure and due to high probability of clinically significant, life threatening deterioration, this patient required my highest level of preparedness to intervene emergently and I personally spent this critical care time directly and personally managing this patient. This critical care time included obtaining a history; examining this patient; pulse oximetry ; ordering and review of studies ; arranging urgent treatment with development of a management plan ; evaluation of patient's response to treatment ; frequent reassessment ; and, discussion with other providers. This critical care time was performed to assess and manage the high probability of imminent, life- threatening deterioration that could result in multiple organ damage if not done in a timely fashion. ED Disposition Clinical Impression: Dizziness, Complete heart block Disposition: ADMITTED INPATIENT Is pt being admited?: Yes Does the pt Need Aspirin: No Condition: Serious
[2022-01-09 12:06] LABS: Basophils # (Auto) 0.1 K/mm3 (0.0-0.1); Basophils % (Auto) 1.1 % (0.0-1.8); Eosinophils # (Auto) 0.2 K/mm3 (0.0-0.4); Eosinophils % (Auto) 1.7 % (0.0-4.3); Hematocrit 38.2 % (30.3-42.9); Hemoglobin 12.7 gm/dl (10.1-14.3); Lymphocytes # (Auto) 2.4 K/mm3 (1.2-5.4); Lymphocytes % (Auto) 24.1 % (13.4-35.0); Mean Corpuscular HGB Conc 33 % (30-34); Mean Corpuscular Volume 94 fl (79-97); Monocytes # (Auto) 0.8 K/mm3 (0.0-0.8); Monocytes % (Auto) 8.4 % (0.0-7.3); Platelet Count 170 K/mm3 (140-440); Red Blood Count 4.08 M/mm3 (3.65-5.03); Red Cell Distribution Width 13.2 % (13.2-15.2)
[2022-01-09 12:11] LABS: INR 0.9 (0.87-1.13)
--- NOTE | 2022-01-09 12:20 | Consultation ---
History of Present Illness Consult date: 01/09/22 Requesting physician: HERIBERTO WYATT Consult reason: bradycardia History of present illness: 81-year-old [place] female history obtained by translation service and by niece history of hypertension on Toprol-XL. Saw [facility] heart practice last year had a negative stress test and echocardiogram. As per the niece was in her usual health. Has been working in the garden for the last day and a half having creasing fatigue and shortness of breath. Was brought by ambulance in which patient was junctional rhythm with intermittent complete heart block with narrow QRS complex. Despite treatment with atropine no resolution. Is being taken to the [facility] for temporary pacemaker Past History Past Medical History: hypertension Past Surgical History: cholecystectomy, Other (lung surgery) Social history: . denies: smoking, alcohol abuse, prescription drug abuse Medications and Allergies Allergies Allergy/AdvReac Type Severity Reaction Status Date / Time No Known Allergies Allergy Verified 01/09/22 11:12 Home Medications Medication Instructions Recorded Confirmed Last Taken Type Doxycycline Hyclate [Doxycycline 100 mg PO Q12HR 7 Days #14 tab 07/23/18 Unknown Rx Hyclate TAB] predniSONE [Deltasone] 20 mg PO QDAY 5 Days #5 tab 07/23/18 Unknown Rx Lansoprazole [Prevacid 24Hr] 15 mg PO QDAY #14 tab 08/02/21 Unknown Rx Ondansetron (Nf) [Zofran TAB] 8 mg PO Q8HR PRN #10 tablet 08/02/21 Unknown Rx Active Meds: Active Medications Acetaminophen (Acetaminophen 325 Mg Tab) 650 mg PO Q4H PRN PRN Reason: Pain MILD(1-3)/Fever >100.5/DUMONT Albuterol (Albuterol 2.5 Mg/3 Ml Nebu) 2.5 mg IH Q4HRT PRN PRN Reason: Shortness Of Breath Hydromorphone HCl (Hydromorphone 0.5 Mg/0.5 Ml Inj) 0.5 mg IV Q23H PRN PRN Reason: Pain , Severe (7-10) Dopamine HCl/Dextrose (Dopamine 800 Mg/D5w 250ml) 800 mg in 250 mls @ 0 mls/hr IV TITR ONE; Protocol Stop: 01/09/22 11:51 Sodium Chloride (Nacl 0.9% 1000 Ml) 1,000 mls @ 999 mls/hr IV BOLUS ONE Stop: 01/09/22 12:48 Ondansetron HCl (Ondansetron 4 Mg/2 Ml Inj) 4 mg IV Q8H PRN PRN Reason: Nausea And Vomiting Oxycodone/Acetaminophen (Oxycodone /Acetaminophen 5-325mg Tab) 1 tab PO Q6H PRN PRN Reason: Pain, Moderate (4-6) Pantoprazole Sodium (Pantoprazole 20 Mg Tab) 20 mg PO QDAY OSIRIS Sodium Chloride (Sodium Chloride 0.9% 10 Ml Flush Syringe) 10 ml IV BID OSIRIS Sodium Chloride (Sodium Chloride 0.9% 10 Ml Flush Syringe) 10 ml IV PRN PRN PRN Reason: LINE FLUSH Review of Systems All systems: negative (As per the HPI) Physical Examination Vital Signs Temp Pulse Resp BP Pulse Ox 98.2 F 38 L 24 113/51 95 01/09/22 11:07 01/09/22 11:07 01/09/22 11:07 01/09/22 11:07 01/09/22 11:07 General appearance: mild distress HEENT: Positive: PERRL, Mucus Membranes Moist Neck: Positive: neck supple, trachea midline Cardiac: Positive: S1/S2, Bradycardia. Negative: Audible Murmur Lungs: Positive: clear to auscultation Neuro: Positive: Grossly Intact Abdomen: Positive: Soft Skin: Positive: Clear Musculoskeletal: No Pain Extremities: Present: normal Results 01/09/22 11:53 01/09/22 11:53 Coagulation 01/09/22 Range/Units 11:53 PT 13.1 (12.2-14.9) Sec. INR 0.90 (0.87-1.13) CBC 01/09/22 Range/Units 11:53 WBC 9.8 (4.5-11.0) K/mm3 RBC 4.08 (3.65-5.03) M/mm3 Hgb 12.7 (10.1-14.3) gm/dl Hct 38.2 (30.3-42.9) % Plt Count 170 (140-440) K/mm3 Lymph # (Auto) 2.4 (1.2-5.4) K/mm3 Henry # (Auto) 0.8 (0.0-0.8) K/mm3 Eos # (Auto) 0.2 (0.0-0.4) K/mm3 Baso # (Auto) 0.1 (0.0-0.1) K/mm3 - Imaging and Cardiology Stress echo: report reviewed (2020 negative Lexiscan EKG) Echo: report reviewed (2020 normal LV function without significant regurgitation) EKG interpretations - Telemetry EKG Rhythm: 3rd Degree HB (Junctional rhythm with intermittent complete heart block narrow QRS complex) Assessment and Plan 81-year-old [place] female with history of hypertension is having symptomatic complete heart block with junctional rhythm despite medical therapy with acute diastolic heart failure. We will place a temporary pacemaker. Consent was obtained by the kimberly via telephone. Patient tolerated procedure well with temporary pacemaker via the right internal jugular vein pacemaker settings of rate of 60 sensitivity 3 and rate of 3. Patient be transferred to the unit - Patient Problems (1) Acute diastolic (congestive) heart failure Current Visit: Yes Status: Acute (2) Complete heart block Current Visit: Yes Status: Acute (3) Dizziness Current Visit: Yes Status: Acute (4) Full code status Current Visit: No Status: Acute (5) HTN (hypertension) Current Visit: No Status: Chronic Qualifiers: Hypertension type: primary hypertension Qualified Code(s): I10 - Essential (primary) hypertension
[2022-01-09] MEDS ORDERED: HEPARIN/NS 5000 UNIT/500ML 1,000 ML IR ONE (12:21)
[2022-01-09] MEDS: LIDOCAINE (2%) 20 MG/1 ML VIAL 20 ML MDV INFILTRATI ONE ×2 (12:34→12:42)
[2022-01-09 12:52] LABS: Alanine Aminotransferase 58 units/L (7-56); BUN/Creatinine Ratio 28; Blood Urea Nitrogen 22 mg/dL (7-17); Calcium 8.3 mg/dL (8.4-10.2); Hemolysis Index 9
--- NOTE | 2022-01-09 13:48 | Consultation ---
History of Present Illness Consult date: 01/09/22 Requesting physician: HERIBERTO WYATT Reason for consult: other (Symptomatic Bradycardia; complete heart Block s/p TPM) History of present illness: PULMONARY/CCM CONSULT NOTE (Full dictation # [id number]) Please see dictated notes for full details Past History Past Medical History: hypertension Past Surgical History: cholecystectomy, Other (lung surgery) Social history: . denies: smoking, alcohol abuse, prescription drug abuse Medications and Allergies Allergies Allergy/AdvReac Type Severity Reaction Status Date / Time No Known Allergies Allergy Verified 01/09/22 11:12 Home Medications Medication Instructions Recorded Confirmed Last Taken Type Doxycycline Hyclate [Doxycycline 100 mg PO Q12HR 7 Days #14 tab 07/23/18 01/10/22 Unknown Rx Hyclate TAB] predniSONE [Deltasone] 20 mg PO QDAY 5 Days #5 tab 07/23/18 01/10/22 Unknown Rx Lansoprazole [Prevacid 24Hr] 15 mg PO QDAY #14 tab 08/02/21 01/10/22 Unknown Rx Ondansetron (Nf) [Zofran TAB] 8 mg PO Q8HR PRN #10 tablet 08/02/21 01/10/22 Unknown Rx Metoprolol 25 mg PO DAILY 01/09/22 01/09/22 01/08/22 History Rosuvastatin Calcium 20 mg PO HS 01/09/22 01/09/22 01/08/22 History Active Meds: Active Medications Acetaminophen (Acetaminophen 325 Mg Tab) 650 mg PO Q4H PRN PRN Reason: Pain MILD(1-3)/Fever >100.5/DUMONT Albuterol (Albuterol 2.5 Mg/3 Ml Nebu) 2.5 mg IH Q4HRT PRN PRN Reason: Shortness Of Breath Hydromorphone HCl (Hydromorphone 0.5 Mg/0.5 Ml Inj) 0.5 mg IV Q23H PRN PRN Reason: Pain , Severe (7-10) Dopamine HCl/Dextrose (Dopamine 800 Mg/D5w 250ml) 800 mg in 250 mls @ 0 mls/hr IV TITR ONE; Protocol Stop: 01/09/22 11:51 Ondansetron HCl (Ondansetron 4 Mg/2 Ml Inj) 4 mg IV Q8H PRN PRN Reason: Nausea And Vomiting Oxycodone/Acetaminophen (Oxycodone /Acetaminophen 5-325mg Tab) 1 tab PO Q6H PRN PRN Reason: Pain, Moderate (4-6) Pantoprazole Sodium (Pantoprazole 20 Mg Tab) 20 mg PO QDAY OSIRIS Sodium Chloride (Sodium Chloride 0.9% 10 Ml Flush Syringe) 10 ml IV BID OSIRIS Sodium Chloride (Sodium Chloride 0.9% 10 Ml Flush Syringe) 10 ml IV PRN PRN PRN Reason: LINE FLUSH Physical Examination Vital signs: Vital Signs Temp Pulse Resp BP Pulse Ox 98.2 F 38 L 24 113/51 95 01/09/22 11:07 01/09/22 11:07 01/09/22 11:07 01/09/22 11:07 01/09/22 11:07 Results - Laboratory Findings CBC and BMP: 01/09/22 11:53 01/10/22 04:18 PT/INR, D-dimer PT 13.1 Sec. (12.2-14.9) 01/09/22 11:53 INR 0.90 (0.87-1.13) 01/09/22 11:53 Abnormal lab findings: Abnormal Labs 01/09/22 01/09/22 11:53 11:53 [place] % (Auto) 8.4 H Chloride 107.4 H BUN 22 H Glucose 109 H Calcium 8.3 L AST 82 H ALT 58 H
--- NOTE | 2022-01-09 14:26 | Cardiac Catherization Report ---
DATE OF SERVICE: 01/09/2022 TEMPORARY PACEMAKER PLACEMENT REPORT CLINICAL INFORMATION: This is an 81-year-old Kiny[place] female with history of hypertension, on Toprol, presents with dizziness and shortness of breath and fall, brought in by EMS with junctional rhythm with intermittent complete heart block, despite medical therapy. Procedure was done with informed consent. DESCRIPTION OF PROCEDURE: Procedure was done with ultrasound guidance of the right internal jugular vein. to gain access with local anesthesia and sterile techinique and placed a temporary wire into the right ventricle, achieved capture at a rate of 60, sensitivity of 3 and output of 3. The patient was sewn in. SUMMARY: Successful placement of a temporary pacemaker via the right internal jugular vein, ultrasound-guided with good output and capture, rate of 60, sensitivity of 3 and output of 3. The patient tolerated the procedure well. TID: [id number] RECEIPT: [id number] GAUTAM/PORTER/DWAYNE NARANJO
--- NOTE | 2022-01-09 14:32 | XRay Report ---
CHEST 1 VIEW 01/09/2022 2:07 PM INDICATION / CLINICAL INFORMATION: pacemaker placement. COMPARISON: 08/01/25 FINDINGS: SUPPORT DEVICES: None. HEART / MEDIASTINUM: Heart is normal size. Right jugular pacemaker lead projects over the right atriu m. LUNGS / PLEURA: No acute airspace disease. No pneumothorax. ADDITIONAL FINDINGS: No significant additional findings. IMPRESSION: 1. Right jugular pacemaker lead projects over the right ventricle. No pneumothorax. Signer Name: Isabella Isaac MD Signed: 01/09/2022 2:28 PM Workstation Name: [id number]
[2022-01-09] MEDS ORDERED: DOPamine 800 MG/D5W 250ML 800 MG/250 ML BAG IV ONE (18:00)
[2022-01-10 05:38] LABS: Blood Urea Nitrogen 14 mg/dL (7-17); Calcium 8.6 mg/dL (8.4-10.2); Hemolysis Index 7
[2022-01-10 05:58] LABS: BUN/Creatinine Ratio 23
[2022-01-10] MEDS: PANTOPRAZOLE 20 MG TAB PO SCH (09:23)
[2022-01-10] MEDS ORDERED: LANSOPRAZOLE 15 MG PO SCH (10:00)
[2022-01-10] MEDS ORDERED: predniSONE 20 MG TAB PO SCH (10:00)
[2022-01-10] MEDS ORDERED: hydrALAZINE 20 MG/1 ML INJ IV PRN (11:00)
--- NOTE | 2022-01-10 11:11 | Progress Note ---
<NIKOLAS CHONG - Last Filed: 01/10/22 15:03> Assessment and Plan Assessment and plan: This is a 81-year old female with known past medical history of NHT and COPD admitted for complete heart block s/p temporary transvenous pacing. Hospital Course to Date: 01/10: s/p temporary pacer removal by Cardiology. SR noted on the monitor, HR in the 80-90s, VSS. 2D echo pending. Norvasc added for BP control, PEN hydralazine for SBP greater than 160. D/w Cardio, patient is stable for transfer to [facility]. PT consulted. Assessment and Plan #Complete Heart Block s/p Temporary Pacer #Acute Diastolic Congestive Feart Failure(CHF) #Hypertension - Presented with generalized weakness and dizziness for about a week - was found in complete HB in the am - Per records patient was on BB for HTN - Cardiology consulted, appreciate recommendations - Temporary transvenous pacer was inserted in civil laboratory technician, removed 01/10 - Currently in SR on the monitor, HR in the 80-90s, VSS - Norvasc added for BP control - Continue blood pressure monitor per protocol - PRN Hydralazine for SBP greater than 160 - 2D echo pending - Strick I&Os and daily weight #H/o COPD (Chronic Obstructive Pulmonary Disease) - Currently not in any exacerbation - was on PO prednisone at home, currently on hold per CCM - Patient is stable on 2L NC - Continue O2 supplementatin and wean as tolerated - Continue SPO2 monitoring for SPO2 goal above 92% #Transaminitis - Presented with mildly elevated LFTs - Probably reactive to above - Continue to trend LFTs #GI/DVT Prophylaxis - PPI- Protonix - SCDs to bilateral lower extremities while in bed #Advance Care Planning - Disease education data, care plan, diagnoses, and prognosis were discussed with patient at the bedside using the stoker erector line. Patient is a FULL code. Patient acknowledged understanding and agreed with current care plan. The high probability of a clinically significant, sudden or life threatening deterioration of the [multiple] system(s) required my full and direct attention, intervention and personal management. The aggregate critical care time was [60] minutes. This time is in addition to time spent performing reported procedures but includes the following: [x] Data Review and interpretation [x] Patient assessment and monitoring of vital signs [x] Documentation [x] Medication orders and management Disposition Plan: Transfer to Telemetry Total Time Spent with Patient (Minutes): 60 History Interval history: Patient seen and examined at the bedside. Fully AAO, on 2L NC, still c/o of mild epigastric pain. SR noted on the monitor, HR in the 80-90, VSS. s/p temporary pacer removal by Cardiology. ARASH overnight Hospitalist Physical - Constitutional Vitals: Temp Pulse Resp BP Pulse Ox 99.4 F 74 19 145/69 99 01/10/22 07:13 01/10/22 09:30 01/10/22 09:30 01/10/22 09:30 01/10/22 09:30 General appearance: Present: no acute distress, cachectic - EENT Eyes: Present: PERRL, EOM intact ENT: hearing intact - Neck Neck: Present: normal ROM - Respiratory Respiratory effort: normal Respiratory: bilateral: diminished - Cardiovascular Rhythm: regular Heart Sounds: Present: S1 & S2 - Extremities Extremities: no ischemia, pulses intact, pulses symmetrical Peripheral Pulses: within normal limits - Abdominal General gastrointestinal: soft, non-distended, normal bowel sounds - Integumentary Integumentary: Present: warm, dry - Psychiatric Psychiatric: appropriate mood/affect, cooperative - Neurologic Neurologic: CNII-XII intact, moves all extremities - Allied Health Allied health notes reviewed: nursing, case management HEART Score - HEART Score Troponin: Troponin T < 0.010 ng/mL (0.00-0.029) 01/09/22 11:53 Results - Labs CBC & Chem 7: 01/09/22 11:53 01/10/22 04:18 Labs: Laboratory Last Values WBC 9.8 K/mm3 (4.5-11.0) 01/09/22 11:53 RBC 4.08 M/mm3 (3.65-5.03) 01/09/22 11:53 Hgb 12.7 gm/dl (10.1-14.3) 01/09/22 11:53 Hct 38.2 % (30.3-42.9) 01/09/22 11:53 MCV 94 fl (79-97) 01/09/22 11:53 MCH 31 pg (28-32) 01/09/22 11:53 MCHC 33 % (30-34) 01/09/22 11:53 RDW 13.2 % (13.2-15.2) 01/09/22 11:53 Plt Count 170 K/mm3 (140-440) 01/09/22 11:53 Lymph % (Auto) 24.1 % (13.4-35.0) 01/09/22 11:53 Scott % (Auto) 8.4 % (0.0-7.3) H 01/09/22 11:53 Eos % (Auto) 1.7 % (0.0-4.3) 01/09/22 11:53 Baso % (Auto) 1.1 % (0.0-1.8) 01/09/22 11:53 Lymph # (Auto) 2.4 K/mm3 (1.2-5.4) 01/09/22 11:53 Scott # (Auto) 0.8 K/mm3 (0.0-0.8) 01/09/22 11:53 Eos # (Auto) 0.2 K/mm3 (0.0-0.4) 01/09/22 11:53 Baso # (Auto) 0.1 K/mm3 (0.0-0.1) 01/09/22 11:53 Seg Neutrophils % 64.7 % (40.0-70.0) 01/09/22 11:53 Seg Neutrophils # 6.3 K/mm3 (1.8-7.7) 01/09/22 11:53 PT 13.1 Sec. (12.2-14.9) 01/09/22 11:53 INR 0.90 (0.87-1.13) 01/09/22 11:53 Sodium 142 mmol/L (137-145) 01/10/22 04:18 Potassium 4.5 mmol/L (3.6-5.0) 01/10/22 04:18 Chloride 106.1 mmol/L (98-107) 01/10/22 04:18 Carbon Dioxide 26 mmol/L (22-30) 01/10/22 04:18 Anion Gap 14 mmol/L 01/10/22 04:18 BUN 14 mg/dL (7-17) 01/10/22 04:18 Creatinine 0.6 mg/dL (0.6-1.2) 01/10/22 04:18 Estimated GFR > 60 ml/min 01/10/22 04:18 BUN/Creatinine Ratio 23 % 01/10/22 04:18 Glucose 99 mg/dL (65-100) 01/10/22 04:18 Calcium 8.6 mg/dL (8.4-10.2) 01/10/22 04:18 Total Bilirubin 0.40 mg/dL (0.1-1.2) 01/09/22 11:53 AST 82 units/L (5-40) H 01/09/22 11:53 ALT 58 units/L (7-56) H 01/09/22 11:53 Alkaline Phosphatase 53 units/L (35-129) 01/09/22 11:53 Troponin T < 0.010 ng/mL (0.00-0.029) 01/09/22 11:53 Total Protein 6.3 g/dL (6.3-8.2) 01/09/22 11:53 Albumin 4.0 g/dL (3.9-5) 01/09/22 11:53 Albumin/Globulin Ratio 1.7 % 01/09/22 11:53 TSH 0.769 mlU/mL (0.270-4.200) 01/09/22 11:53 Free T4 1.08 ng/dL (0.76-1.46) 01/09/22 11:53 Florentino/IV: Voiding Method Bedpan Active Medications - Current Medications Current Medications: Generic Name Dose Route Start Last Admin Trade Name Freq PRN Reason Stop Dose Admin Acetaminophen 650 mg 01/09/22 11:56 Acetaminophen 325 Mg Tab PO Q4H PRN Pain MILD(1-3)/Fever >100.5/DUMONT Albuterol 2.5 mg 01/09/22 11:56 Albuterol 2.5 Mg/3 Ml Nebu IH Q4HRT PRN Shortness Of Breath Amlodipine Besylate 5 mg 01/10/22 11:00 Amlodipine 5 Mg Tab PO QDAY OSIRIS Atorvastatin Calcium 40 mg 01/10/22 22:00 Atorvastatin 40 Mg Tab PO QHS OSIRIS Hydralazine HCl 20 mg 01/10/22 11:00 Hydralazine 20 Mg/1 Ml Inj IV Q4HR PRN Hypertension Ondansetron HCl 4 mg 01/09/22 11:56 Ondansetron 4 Mg/2 Ml Inj IV Q8H PRN Nausea And Vomiting Oxycodone/Acetaminophen 1 tab 01/09/22 11:56 Oxycodone /Acetaminophen 5-325mg Tab PO Q6H PRN Pain, Moderate (4-6) Pantoprazole Sodium 20 mg 01/10/22 10:00 01/10/22 09:23 Pantoprazole 20 Mg Tab PO 20 mg QDAY OSIRIS Administration Sodium Chloride 10 ml 01/09/22 22:00 01/10/22 09:23 Sodium Chloride 0.9% 10 Ml Flush Syringe IV 10 ml BID OSIRIS Administration Sodium Chloride 10 ml 01/09/22 11:56 Sodium Chloride 0.9% 10 Ml Flush Syringe IV PRN PRN LINE FLUSH <NICK SADLER - Last Filed: 01/11/22 07:26> Assessment and Plan Assessment and plan: I saw and evaluated the patient. I agree with the findings and the plan of care as documented in the Nurse Practitioner's~note, with the following corrections and additions. Hospitalist Physical - Constitutional Vitals: Temp Pulse Resp BP Pulse Ox 98.4 F 80 18 111/75 94 01/11/22 03:54 01/11/22 03:54 01/11/22 03:54 01/11/22 03:54 01/11/22 03:54 HEART Score - HEART Score Troponin: Troponin T < 0.010 ng/mL (0.00-0.029) 01/09/22 11:53 Results - Labs CBC & Chem 7: 01/11/22 04:48 01/11/22 04:48 Labs: Laboratory Last Values WBC 8.5 K/mm3 (4.5-11.0) 01/11/22 04:48 RBC 4.51 M/mm3 (3.65-5.03) 01/11/22 04:48 Hgb 14.2 gm/dl (10.1-14.3) 01/11/22 04:48 Hct 41.6 % (30.3-42.9) 01/11/22 04:48 MCV 92 fl (79-97) 01/11/22 04:48 MCH 31 pg (28-32) 01/11/22 04:48 MCHC 34 % (30-34) 01/11/22 04:48 RDW 13.2 % (13.2-15.2) 01/11/22 04:48 Plt Count 167 K/mm3 (140-440) 01/11/22 04:48 Lymph % (Auto) 24.1 % (13.4-35.0) 01/09/22 11:53 Scott % (Auto) 8.4 % (0.0-7.3) H 01/09/22 11:53 Eos % (Auto) 1.7 % (0.0-4.3) 01/09/22 11:53 Baso % (Auto) 1.1 % (0.0-1.8) 01/09/22 11:53 Lymph # (Auto) 2.4 K/mm3 (1.2-5.4) 01/09/22 11:53 Scott # (Auto) 0.8 K/mm3 (0.0-0.8) 01/09/22 11:53 Eos # (Auto) 0.2 K/mm3 (0.0-0.4) 01/09/22 11:53 Baso # (Auto) 0.1 K/mm3 (0.0-0.1) 01/09/22 11:53 Seg Neutrophils % 64.7 % (40.0-70.0) 01/09/22 11:53 Seg Neutrophils # 6.3 K/mm3 (1.8-7.7) 01/09/22 11:53 PT 13.1 Sec. (12.2-14.9) 01/09/22 11:53 INR 0.90 (0.87-1.13) 01/09/22 11:53 Sodium 142 mmol/L (137-145) 01/11/22 04:48 Potassium 4.0 mmol/L (3.6-5.0) 01/11/22 04:48 Chloride 105.0 mmol/L (98-107) 01/11/22 04:48 Carbon Dioxide 27 mmol/L (22-30) 01/11/22 04:48 Anion Gap 14 mmol/L 01/11/22 04:48 BUN 10 mg/dL (7-17) 01/11/22 04:48 Creatinine 0.6 mg/dL (0.6-1.2) 01/11/22 04:48 Estimated GFR > 60 ml/min 01/11/22 04:48 BUN/Creatinine Ratio 17 % 01/11/22 04:48 Glucose 114 mg/dL (65-100) H 01/11/22 04:48 POC Glucose 122 mg/dL (70-105) H 01/10/22 11:29 Calcium 8.9 mg/dL (8.4-10.2) 01/11/22 04:48 Phosphorus 3.10 mg/dL (2.5-4.5) 01/11/22 04:48 Magnesium 2.20 mg/dL (1.7-2.3) 01/11/22 04:48 Total Bilirubin 1.10 mg/dL (0.1-1.2) 01/11/22 04:48 AST 28 units/L (5-40) 01/11/22 04:48 ALT 40 units/L (7-56) 01/11/22 04:48 Alkaline Phosphatase 60 units/L (35-129) 01/11/22 04:48 Troponin T < 0.010 ng/mL (0.00-0.029) 01/09/22 11:53 Total Protein 6.6 g/dL (6.3-8.2) 01/11/22 04:48 Albumin 4.0 g/dL (3.9-5) 01/11/22 04:48 Albumin/Globulin Ratio 1.5 % 01/11/22 04:48 TSH 0.769 mlU/mL (0.270-4.200) 01/09/22 11:53 Free T4 1.08 ng/dL (0.76-1.46) 01/09/22 11:53 Florentino/IV: Voiding Method Bedpan Active Medications - Current Medications Current Medications: Generic Name Dose Route Start Last Admin Trade Name Freq PRN Reason Stop Dose Admin Acetaminophen 650 mg 01/09/22 11:56 Acetaminophen 325 Mg Tab PO Q4H PRN Pain MILD(1-3)/Fever >100.5/DUMONT Albuterol 2.5 mg 01/09/22 11:56 Albuterol 2.5 Mg/3 Ml Nebu IH Q4HRT PRN Shortness Of Breath Amlodipine Besylate 5 mg 01/10/22 11:00 01/10/22 21:23 Amlodipine 5 Mg Tab PO 5 mg QDAY OSIRIS Administration Arformoterol Tartrate 15 mcg 01/10/22 20:00 01/10/22 20:49 Arformoterol 15 Mcg/2 Ml Nebu IH 15 mcg Q12HRT OSIRIS Administration Atorvastatin Calcium 40 mg 01/10/22 22:00 01/10/22 21:23 Atorvastatin 40 Mg Tab PO 40 mg QHS OSIRIS Administration Budesonide 0.5 mg 01/10/22 20:00 01/10/22 20:48 Budesonide 0.5 Mg/2 Ml Nebu IH 0.5 mg Q12HRT OSIRIS Administration Hydralazine HCl 20 mg 01/10/22 11:00 Hydralazine 20 Mg/1 Ml Inj IV Q4HR PRN Hypertension Ondansetron HCl 4 mg 01/09/22 11:56 Ondansetron 4 Mg/2 Ml Inj IV Q8H PRN Nausea And Vomiting Oxycodone/Acetaminophen 1 tab 01/09/22 11:56 Oxycodone /Acetaminophen 5-325mg Tab PO Q6H PRN Pain, Moderate (4-6) Pantoprazole Sodium 20 mg 01/10/22 10:00 01/10/22 09:23 Pantoprazole 20 Mg Tab PO 20 mg QDAY OSIRIS Administration Sodium Chloride 10 ml 01/09/22 22:00 01/10/22 21:24 Sodium Chloride 0.9% 10 Ml Flush Syringe IV 10 ml BID OSIRIS Administration Sodium Chloride 10 ml 01/09/22 11:56 Sodium Chloride 0.9% 10 Ml Flush Syringe IV PRN PRN LINE FLUSH
--- NOTE | 2022-01-10 11:30 | Progress Note ---
Assessment and Plan 81-year-old [place] female with history of hypertension patient is feeling much better on monitors no longer requiring pacemaker extra miles upper limit of heart rate in the 90s. Pacemaker was DC'd. Using the translation service explained to the patient. We will ambulatory the patient patient's temporary complete heart block prior medication induced. We will ambulatory the patient and telemetry and determine if patient has tachybradycardia syndrome or pauses - Patient Problems (1) Acute diastolic (congestive) heart failure Current Visit: Yes Status: Acute (2) Complete heart block Current Visit: Yes Status: Acute (3) Dizziness Current Visit: Yes Status: Acute (4) Full code status Current Visit: No Status: Acute (5) HTN (hypertension) Current Visit: No Status: Chronic Qualifiers: Hypertension type: primary hypertension Qualified Code(s): I10 - Essential (primary) hypertension Subjective Date of service: 01/10/22 Principal diagnosis: CHB Interval history: feeling better Objective Vital Signs Temp Pulse Pulse Resp BP Pulse Ox 01/10/22 09:30 74 19 145/69 99 01/10/22 09:20 83 19 140/77 99 01/10/22 09:10 83 18 140/77 98 01/10/22 09:00 83 19 140/77 99 01/10/22 08:50 84 18 157/69 99 01/10/22 08:40 84 18 157/69 99 01/10/22 08:30 79 20 157/69 100 01/10/22 08:20 83 19 151/76 100 01/10/22 08:10 93 H 19 151/76 99 01/10/22 08:00 86 86 14 140/70 100 01/10/22 07:50 85 17 141/70 100 01/10/22 07:40 70 17 141/70 100 01/10/22 07:30 78 16 141/70 100 01/10/22 07:20 81 19 151/76 99 01/10/22 07:13 99.4 F 01/10/22 07:10 76 17 151/76 100 01/10/22 07:00 83 19 151/76 100 01/10/22 06:50 80 17 146/77 100 01/10/22 06:40 83 18 146/77 100 01/10/22 06:30 92 H 21 146/77 100 01/10/22 06:20 87 21 141/86 100 01/10/22 06:10 107 H 24 141/86 01/10/22 06:00 110 H 18 141/86 01/10/22 05:50 101 H 17 145/75 01/10/22 05:40 84 23 145/75 100 01/10/22 05:30 80 21 145/75 100 01/10/22 05:20 71 17 143/77 100 01/10/22 05:10 79 17 143/77 100 01/10/22 05:00 81 19 143/77 100 01/10/22 04:50 85 21 140/76 100 01/10/22 04:40 80 17 140/76 100 01/10/22 04:30 64 17 145/73 100 01/10/22 04:20 83 26 H 140/76 99 01/10/22 04:10 72 15 140/76 100 01/10/22 04:00 78 79 17 140/76 99 01/10/22 03:50 71 18 152/72 99 01/10/22 03:40 70 18 152/72 100 01/10/22 03:30 70 18 152/72 99 01/10/22 03:20 80 22 139/77 100 01/10/22 03:10 77 20 139/77 99 01/10/22 03:00 74 19 139/77 99 01/10/22 02:50 75 19 146/62 100 01/10/22 02:40 75 22 146/62 99 01/10/22 02:30 74 20 146/62 100 01/10/22 02:20 75 19 99 01/10/22 02:10 74 18 151/83 99 01/10/22 02:00 75 20 155/84 99 01/10/22 01:50 94 H 20 162/81 100 01/10/22 01:40 76 20 155/84 99 01/10/22 01:30 83 21 155/84 99 01/10/22 01:20 78 20 162/81 98 01/10/22 01:10 79 18 162/81 99 01/10/22 01:00 76 20 162/81 98 01/10/22 00:50 80 20 162/76 100 01/10/22 00:40 75 21 162/76 98 01/10/22 00:30 68 19 162/76 99 01/10/22 00:20 91 H 29 H 159/63 99 01/10/22 00:10 79 19 159/63 98 01/10/22 00:00 77 77 21 152/76 100 01/09/22 23:50 80 18 152/76 98 01/09/22 23:40 76 19 152/76 98 01/09/22 23:30 69 18 152/76 98 01/09/22 23:20 77 19 135/66 98 01/09/22 23:10 72 17 135/66 98 01/09/22 23:00 72 17 157/76 98 01/09/22 22:50 69 18 157/76 98 01/09/22 22:40 74 20 157/76 99 01/09/22 22:30 71 21 157/76 98 01/09/22 22:20 77 21 146/79 98 01/09/22 22:10 87 23 146/79 96 01/09/22 22:00 67 17 140/73 98 01/09/22 21:50 72 18 140/73 98 01/09/22 21:40 68 19 140/73 97 01/09/22 21:30 67 21 140/73 97 01/09/22 21:20 67 22 145/64 96 01/09/22 21:10 63 26 H 146/63 97 01/09/22 21:00 64 24 145/64 95 01/09/22 20:50 62 16 145/64 95 01/09/22 20:40 66 19 145/64 97 01/09/22 20:30 65 19 133/69 98 01/09/22 20:20 61 20 133/69 98 01/09/22 20:10 60 16 133/69 99 01/09/22 20:00 60 60 19 133/69 99 01/09/22 19:50 62 14 127/71 98 01/09/22 19:40 63 19 127/71 99 01/09/22 19:30 63 20 127/71 98 01/09/22 19:21 98 01/09/22 19:20 62 18 144/92 98 01/09/22 19:10 61 19 144/92 99 01/09/22 19:00 60 20 133/70 98 01/09/22 18:52 60 21 142/98 99 01/09/22 18:50 63 19 142/98 99 01/09/22 18:40 63 21 142/98 98 01/09/22 18:32 144/92 97 01/09/22 18:20 60 18 144/92 98 01/09/22 18:10 60 20 144/92 98 01/09/22 18:01 144/92 01/09/22 18:00 64 22 142/78 97 01/09/22 17:50 61 21 142/78 98 01/09/22 17:40 67 20 142/78 99 01/09/22 17:30 63 21 142/78 99 01/09/22 17:20 64 22 144/67 99 01/09/22 17:10 59 L 17 144/67 99 01/09/22 17:00 64 20 144/67 99 01/09/22 16:50 62 21 136/64 99 01/09/22 16:40 61 20 136/64 99 01/09/22 16:30 61 14 173/74 99 01/09/22 16:20 60 19 173/74 99 01/09/22 16:10 60 22 173/74 98 01/09/22 16:00 63 63 22 119/69 99 01/09/22 15:50 62 21 140/71 99 01/09/22 15:40 71 24 125/70 97 01/09/22 15:30 60 19 136/54 99 01/09/22 15:20 62 14 125/70 98 01/09/22 15:10 61 21 136/54 98 01/09/22 15:00 60 14 132/51 98 01/09/22 14:57 60 13 132/51 100 01/09/22 14:00 61 21 99 01/09/22 12:30 34 L 16 108/53 98 01/09/22 12:20 44 L 18 105/48 96 01/09/22 12:15 33 L 18 104/48 100 01/09/22 12:01 39 L 26 H 105/48 95 01/09/22 12:00 98 01/09/22 11:45 42 L 16 120/57 95 01/09/22 11:31 46 L 21 114/47 95 - Physical Examination General: No Apparent Distress HEENT: Positive: PERRL, Mucus Membranes Moist Neck: Positive: neck supple, trachea midline Cardiac: Positive: Regular Rate Lungs: Positive: clear to auscultation Neuro: Positive: Grossly Intact Abdomen: Positive: Soft Skin: Positive: Clear Musculoskeletal: No Pain Extremities: Present: normal - Labs and Meds Cardiac Enzymes 01/09/22 Range/Units 11:53 AST 82 H (5-40) units/L Coagulation 01/09/22 Range/Units 11:53 PT 13.1 (12.2-14.9) Sec. INR 0.90 (0.87-1.13) CBC 01/09/22 Range/Units 11:53 WBC 9.8 (4.5-11.0) K/mm3 RBC 4.08 (3.65-5.03) M/mm3 Hgb 12.7 (10.1-14.3) gm/dl Hct 38.2 (30.3-42.9) % Plt Count 170 (140-440) K/mm3 Lymph # (Auto) 2.4 (1.2-5.4) K/mm3 Parmer # (Auto) 0.8 (0.0-0.8) K/mm3 Eos # (Auto) 0.2 (0.0-0.4) K/mm3 Baso # (Auto) 0.1 (0.0-0.1) K/mm3 Comprehensive Metabolic Panel 01/09/22 01/10/22 Range/Units 11:53 04:18 Sodium 139 142 (137-145) mmol/L Potassium 5.0 4.5 (3.6-5.0) mmol/L Chloride 107.4 H 106.1 (98-107) mmol/L Carbon Dioxide 23 26 (22-30) mmol/L BUN 22 H 14 (7-17) mg/dL Creatinine 0.8 0.6 (0.6-1.2) mg/dL Glucose 109 H 99 (65-100) mg/dL Calcium 8.3 L 8.6 (8.4-10.2) mg/dL AST 82 H (5-40) units/L ALT 58 H (7-56) units/L Alkaline Phosphatase 53 (35-129) units/L Total Protein 6.3 (6.3-8.2) g/dL Albumin 4.0 (3.9-5) g/dL - Imaging and Cardiology Stress echo: report reviewed (2020 negative Lexiscan EKG) Echo: report reviewed (2020 normal LV function without significant regurgitation) - EKG Sinus rhythms and dysrhythmias: sinus rhythm
--- NOTE | 2022-01-10 13:24 | Progress Note ---
Assessment and Plan - continue accuchecks with glycemic control per SSI for target blood glucose < 180 mg/dL - continue to wean supplemental oxygen to keep O2 sats > 90% - prn bronchodilators (JEROMY) with pulm hygiene per RT - continue to avoid nephrotoxins, renally dose all medications - mobility protocols to prevent pressure ulcers - PT/OT as tolerated - Wound care per RN/WCT - tobacco abstinence strongly counseled at the bedside - home oxygen evaluation at discharge - GI & VTE prophylaxis - Flu & pneumovax per protocol - Pulmonary out patient follow up for PFTs and optimization of respiratory status - continue other care per attending / other consultants - prn analgesia per pain score ... re-evaluate in am & prn Subjective Date of service: 01/10/22 Principal diagnosis: CHB Interval history: Patient is seen today for: Seen and examined at bedside; 24hour events reviewed; nursing and respiratory care staff consulted; no adverse overnight events reported to me; resting peacefully in bed; Objective Vital Signs - 12hr 01/10/22 01/10/22 01/10/22 01:30 01:40 01:50 Temperature Pulse Rate 83 76 94 H Pulse Rate [ From Monitor] Respiratory 21 20 20 Rate Blood Pressure 155/84 155/84 162/81 O2 Sat by Pulse 99 99 100 Oximetry 01/10/22 01/10/22 01/10/22 02:00 02:10 02:20 Temperature Pulse Rate 75 74 75 Pulse Rate [ From Monitor] Respiratory 20 18 19 Rate Blood Pressure 155/84 151/83 O2 Sat by Pulse 99 99 99 Oximetry 01/10/22 01/10/22 01/10/22 02:30 02:40 02:50 Temperature Pulse Rate 74 75 75 Pulse Rate [ From Monitor] Respiratory 20 22 19 Rate Blood Pressure 146/62 146/62 146/62 O2 Sat by Pulse 100 99 100 Oximetry 01/10/22 01/10/22 01/10/22 03:00 03:10 03:20 Temperature Pulse Rate 74 77 80 Pulse Rate [ From Monitor] Respiratory 19 20 22 Rate Blood Pressure 139/77 139/77 139/77 O2 Sat by Pulse 99 99 100 Oximetry 01/10/22 01/10/22 01/10/22 03:30 03:40 03:50 Temperature Pulse Rate 70 70 71 Pulse Rate [ From Monitor] Respiratory 18 18 18 Rate Blood Pressure 152/72 152/72 152/72 O2 Sat by Pulse 99 100 99 Oximetry 01/10/22 01/10/22 01/10/22 04:00 04:10 04:20 Temperature Pulse Rate 78 72 83 Pulse Rate [ 79 From Monitor] Respiratory 17 15 26 H Rate Blood Pressure 140/76 140/76 140/76 O2 Sat by Pulse 99 100 99 Oximetry 01/10/22 01/10/22 01/10/22 04:30 04:40 04:50 Temperature Pulse Rate 64 80 85 Pulse Rate [ From Monitor] Respiratory 17 17 21 Rate Blood Pressure 145/73 140/76 140/76 O2 Sat by Pulse 100 100 100 Oximetry 01/10/22 01/10/22 01/10/22 05:00 05:10 05:20 Temperature Pulse Rate 81 79 71 Pulse Rate [ From Monitor] Respiratory 19 17 17 Rate Blood Pressure 143/77 143/77 143/77 O2 Sat by Pulse 100 100 100 Oximetry 01/10/22 01/10/22 01/10/22 05:30 05:40 05:50 Temperature Pulse Rate 80 84 101 H Pulse Rate [ From Monitor] Respiratory 21 23 17 Rate Blood Pressure 145/75 145/75 145/75 O2 Sat by Pulse 100 100 Oximetry 01/10/22 01/10/22 01/10/22 06:00 06:10 06:20 Temperature Pulse Rate 110 H 107 H 87 Pulse Rate [ From Monitor] Respiratory 18 24 21 Rate Blood Pressure 141/86 141/86 141/86 O2 Sat by Pulse 100 Oximetry 01/10/22 01/10/22 01/10/22 06:30 06:40 06:50 Temperature Pulse Rate 92 H 83 80 Pulse Rate [ From Monitor] Respiratory 21 18 17 Rate Blood Pressure 146/77 146/77 146/77 O2 Sat by Pulse 100 100 100 Oximetry 01/10/22 01/10/22 01/10/22 07:00 07:10 07:13 Temperature 99.4 F Pulse Rate 83 76 Pulse Rate [ From Monitor] Respiratory 19 17 Rate Blood Pressure 151/76 151/76 O2 Sat by Pulse 100 100 Oximetry 01/10/22 01/10/22 01/10/22 07:20 07:30 07:40 Temperature Pulse Rate 81 78 70 Pulse Rate [ From Monitor] Respiratory 19 16 17 Rate Blood Pressure 151/76 141/70 141/70 O2 Sat by Pulse 99 100 100 Oximetry 01/10/22 01/10/22 01/10/22 07:50 08:00 08:10 Temperature Pulse Rate 85 86 93 H Pulse Rate [ 86 From Monitor] Respiratory 17 14 19 Rate Blood Pressure 141/70 140/70 151/76 O2 Sat by Pulse 100 100 99 Oximetry 01/10/22 01/10/22 01/10/22 08:20 08:30 08:40 Temperature Pulse Rate 83 79 84 Pulse Rate [ From Monitor] Respiratory 19 20 18 Rate Blood Pressure 151/76 157/69 157/69 O2 Sat by Pulse 100 100 99 Oximetry 01/10/22 01/10/22 01/10/22 08:50 09:00 09:10 Temperature Pulse Rate 84 83 83 Pulse Rate [ From Monitor] Respiratory 18 19 18 Rate Blood Pressure 157/69 140/77 140/77 O2 Sat by Pulse 99 99 98 Oximetry 01/10/22 01/10/22 01/10/22 09:20 09:30 09:40 Temperature Pulse Rate 83 74 95 H Pulse Rate [ From Monitor] Respiratory 19 19 25 H Rate Blood Pressure 140/77 145/69 145/69 O2 Sat by Pulse 99 99 98 Oximetry 01/10/22 01/10/22 01/10/22 09:50 10:00 10:10 Temperature Pulse Rate 112 H 92 H 99 H Pulse Rate [ From Monitor] Respiratory 21 23 26 H Rate Blood Pressure 145/69 159/75 159/75 O2 Sat by Pulse 98 96 Oximetry 01/10/22 01/10/22 01/10/22 10:20 10:30 10:40 Temperature Pulse Rate 93 H 89 86 Pulse Rate [ From Monitor] Respiratory 17 20 21 Rate Blood Pressure 159/75 139/65 159/75 O2 Sat by Pulse 95 95 93 Oximetry 01/10/22 01/10/22 01/10/22 10:50 11:00 11:10 Temperature Pulse Rate 87 112 H 88 Pulse Rate [ From Monitor] Respiratory 24 22 18 Rate Blood Pressure 159/75 159/75 139/65 O2 Sat by Pulse 94 Oximetry 01/10/22 01/10/22 01/10/22 11:20 11:30 11:40 Temperature Pulse Rate 80 85 79 Pulse Rate [ From Monitor] Respiratory 19 27 H 20 Rate Blood Pressure 139/65 139/75 139/75 O2 Sat by Pulse Oximetry 01/10/22 01/10/22 01/10/22 11:50 12:00 12:10 Temperature Pulse Rate 88 87 89 Pulse Rate [ 88 From Monitor] Respiratory 21 21 18 Rate Blood Pressure 139/75 O2 Sat by Pulse 96 Oximetry 01/10/22 12:12 Temperature 100.1 F H Pulse Rate Pulse Rate [ From Monitor] Respiratory Rate Blood Pressure O2 Sat by Pulse Oximetry CBC and BMP: 01/09/22 11:53 01/10/22 04:18 ABG, PT/INR, D-dimer: PT/INR, D-dimer PT 13.1 Sec. (12.2-14.9) 01/09/22 11:53 INR 0.90 (0.87-1.13) 01/09/22 11:53 Abnormal lab findings: Abnormal Labs 01/09/22 01/09/22 11:53 11:53 [place] % (Auto) 8.4 H Chloride 107.4 H BUN 22 H Glucose 109 H Calcium 8.3 L AST 82 H ALT 58 H
--- NOTE | 2022-01-10 17:00 | Progress Note ---
Assessment and Plan Symptomatic bradycardia Complete heart block now s/p TPM COPD H/O HFpEF Elevated serum transaminases HTN - trend serum transaminases - outpatient f/up wit cardiology re: transient CHB - continue accuchecks with glycemic control per SSI for target blood glucose < 180 mg/dL - continue to wean supplemental oxygen to keep O2 sats > 90% - continue bronchodilators (JEROMY & LAB) with pulm hygiene per RT - continue inhaled corticosteroids re: COPD - continue to avoid nephrotoxins, renally dose all medications - mobility protocols to prevent pressure ulcers - PT/OT as tolerated - Wound care per RN/WCT - tobacco abstinence strongly counseled at the bedside - home oxygen evaluation at discharge - GI & VTE prophylaxis - Flu & pneumovax per protocol - Pulmonary out patient follow up for PFTs and optimization of respiratory status - continue other care per attending / other consultants - prn analgesia per pain score ... re-evaluate in am & prn Subjective Date of service: 01/10/22 Principal diagnosis: Symptomatic bradycardia; Complete heart block s/p TPM; COPD; H/O HFpEF; HTN Interval history: Patient is seen today for: Symptomatic bradycardia; Complete heart block now s/p TPM; COPD; H/O HFpEF; Elevated serum transaminases; HTN Seen and examined at bedside; 24hour events reviewed; nursing and respiratory care staff consulted; no adverse overnight events reported to me; resting peacefully in bed; TPM discontinued; heart block has resolved and not needing pacing; she denies chest pains or palpitations Objective Vital Signs - 12hr 01/10/22 01/10/22 01/10/22 05:00 05:10 05:20 Temperature Pulse Rate 81 79 71 Pulse Rate [ From Monitor] Respiratory 19 17 17 Rate Blood Pressure 143/77 143/77 143/77 O2 Sat by Pulse 100 100 100 Oximetry 01/10/22 01/10/22 01/10/22 05:30 05:40 05:50 Temperature Pulse Rate 80 84 101 H Pulse Rate [ From Monitor] Respiratory 21 23 17 Rate Blood Pressure 145/75 145/75 145/75 O2 Sat by Pulse 100 100 Oximetry 01/10/22 01/10/22 01/10/22 06:00 06:10 06:20 Temperature Pulse Rate 110 H 107 H 87 Pulse Rate [ From Monitor] Respiratory 18 24 21 Rate Blood Pressure 141/86 141/86 141/86 O2 Sat by Pulse 100 Oximetry 01/10/22 01/10/22 01/10/22 06:30 06:40 06:50 Temperature Pulse Rate 92 H 83 80 Pulse Rate [ From Monitor] Respiratory 21 18 17 Rate Blood Pressure 146/77 146/77 146/77 O2 Sat by Pulse 100 100 100 Oximetry 01/10/22 01/10/22 01/10/22 07:00 07:10 07:13 Temperature 99.4 F Pulse Rate 83 76 Pulse Rate [ From Monitor] Respiratory 19 17 Rate Blood Pressure 151/76 151/76 O2 Sat by Pulse 100 100 Oximetry 01/10/22 01/10/22 01/10/22 07:20 07:30 07:40 Temperature Pulse Rate 81 78 70 Pulse Rate [ From Monitor] Respiratory 19 16 17 Rate Blood Pressure 151/76 141/70 141/70 O2 Sat by Pulse 99 100 100 Oximetry 01/10/22 01/10/22 01/10/22 07:50 08:00 08:10 Temperature Pulse Rate 85 86 93 H Pulse Rate [ 86 From Monitor] Respiratory 17 14 19 Rate Blood Pressure 141/70 140/70 151/76 O2 Sat by Pulse 100 100 99 Oximetry 01/10/22 01/10/22 01/10/22 08:20 08:30 08:40 Temperature Pulse Rate 83 79 84 Pulse Rate [ From Monitor] Respiratory 19 20 18 Rate Blood Pressure 151/76 157/69 157/69 O2 Sat by Pulse 100 100 99 Oximetry 01/10/22 01/10/22 01/10/22 08:50 09:00 09:10 Temperature Pulse Rate 84 83 83 Pulse Rate [ From Monitor] Respiratory 18 19 18 Rate Blood Pressure 157/69 140/77 140/77 O2 Sat by Pulse 99 99 98 Oximetry 01/10/22 01/10/22 01/10/22 09:20 09:30 09:40 Temperature Pulse Rate 83 74 95 H Pulse Rate [ From Monitor] Respiratory 19 19 25 H Rate Blood Pressure 140/77 145/69 145/69 O2 Sat by Pulse 99 99 98 Oximetry 01/10/22 01/10/22 01/10/22 09:50 10:00 10:05 Temperature Pulse Rate 112 H 92 H Pulse Rate [ From Monitor] Respiratory 21 23 Rate Blood Pressure 145/69 159/75 O2 Sat by Pulse 98 98 Oximetry 01/10/22 01/10/22 01/10/22 10:10 10:20 10:30 Temperature Pulse Rate 99 H 93 H 89 Pulse Rate [ From Monitor] Respiratory 26 H 17 20 Rate Blood Pressure 159/75 159/75 139/65 O2 Sat by Pulse 96 95 95 Oximetry 01/10/22 01/10/22 01/10/22 10:40 10:50 11:00 Temperature Pulse Rate 86 87 112 H Pulse Rate [ From Monitor] Respiratory 21 24 22 Rate Blood Pressure 159/75 159/75 159/75 O2 Sat by Pulse 93 94 Oximetry 01/10/22 01/10/22 01/10/22 11:10 11:20 11:30 Temperature Pulse Rate 88 80 85 Pulse Rate [ From Monitor] Respiratory 18 19 27 H Rate Blood Pressure 139/65 139/65 139/75 O2 Sat by Pulse Oximetry 01/10/22 01/10/22 01/10/22 11:40 11:50 12:00 Temperature Pulse Rate 79 88 87 Pulse Rate [ 88 From Monitor] Respiratory 20 21 21 Rate Blood Pressure 139/75 139/75 O2 Sat by Pulse 96 Oximetry 01/10/22 01/10/22 01/10/22 12:10 12:12 12:30 Temperature 100.1 F H Pulse Rate 89 85 Pulse Rate [ From Monitor] Respiratory 18 19 Rate Blood Pressure 134/73 O2 Sat by Pulse 96 Oximetry 01/10/22 15:52 Temperature 98.1 F Pulse Rate 82 Pulse Rate [ From Monitor] Respiratory 18 Rate Blood Pressure 147/67 O2 Sat by Pulse 96 Oximetry Constitutional: no acute distress Eyes: non-icteric ENT: oropharynx moist Neck: supple, no lymphadenopathy, no JVD Effort: normal Ascultation: Bilateral: diminished breath sounds, rhonchi Percussion: Bilateral: not dull Cardiovascular: regular rate and rhythm Gastrointestinal: normoactive bowel sounds, soft, non-tender, non-distended Integumentary: normal Extremities: no cyanosis, no edema, pulses normal, no ischemia or petechiae Neurologic: non-focal exam (grossly), pupils equal and round, CN II-XII normal Psychiatric: mood appropriate, affect normal CBC and BMP: 01/11/22 04:48 01/11/22 04:48 ABG, PT/INR, D-dimer: PT/INR, D-dimer PT 13.1 Sec. (12.2-14.9) 01/09/22 11:53 INR 0.90 (0.87-1.13) 01/09/22 11:53 Abnormal lab findings: Abnormal Labs 01/09/22 01/09/22 11:53 11:53 [place] % (Auto) 8.4 H Chloride 107.4 H BUN 22 H Glucose 109 H Calcium 8.3 L AST 82 H ALT 58 H Allied health notes reviewed: nursing
[2022-01-10] MEDS: BUDESONIDE 0.5 MG/2 ML NEBU IH SCH (20:48)
[2022-01-10] MEDS: ARFORMOTEROL 15 MCG/2 ML NEBU IH SCH (20:49)
[2022-01-10] MEDS: amLODIPine 5 MG TAB PO SCH (21:23)
--- NOTE | 2022-01-10 21:28 | Consultation ---
DATE OF CONSULTATION: 01/09/2022 PULMONARY AND CRITICAL CARE CONSULT NOTE CONSULTING PHYSICIAN: Naveen Sesay MD REASON FOR CONSULTATION: Symptomatic bradycardia, complete heart block, status post pacemaker insertion. CHIEF COMPLAINT AND HISTORY OF PRESENT ILLNESS: The patient is a now 81-year-old female with past medical history significant amongst other things for a diagnosis of hypertension and chronic obstructive lung disease, not on home oxygen, came into the Emergency Room complaining of feeling dizzy and weak. It had been going on for about a week, but has been getting worse. She also complained of increasing dyspnea on exertion, shortness of breath at rest and in particular the feeling of near syncope. Emergency Medical Services upon arriving found her to be bradycardic, heart rate in the 30s. She was brought into the Emergency Room where she was diagnosed with complete heart block as well as symptoms of acute CHF exacerbation. Cardiology was consulted. The patient was taken to the matlab developer, I believe for implantation of a temporary pacemaker and post-procedure was transferred over to the intensive care unit. When I stopped by to see her, she was resting in bed. She denied any chest pain at that time, felt a little bit better overall. She had denied any cough or expectoration. Denied any recent contact with known people with COVID-19 infection. She denied any gross or streaky hemoptysis. With regards to tobacco use/abuse, she had denied any of that. She lives much of the history of presentation as I have. PAST MEDICAL HISTORY: Again, COPD, hypertension. PAST SURGICAL HISTORY: She has had a cholecystectomy in the past. MEDICATIONS: She was on at the time I stopped by to see her according to the medication administration record included the following: Tylenol 650 mg p.o. q. 4 hours p.r.n. mild pain or fevers, albuterol 2.5 mg nebulized q. 4 hours p.r.n. shortness of breath/wheezing, Dilaudid 0.5 mg IV q. 23 hours p.r.n. severe pain, dopamine drip had earlier been going for the bradycardia, Zofran 4 mg IV q. 8 hours p.r.n. nausea and vomiting, Oxycodone 5/325 mg 1 tablet p.o. q. 6 hours p.r.n. moderate pain, Protonix 20 mg p.o. daily. ALLERGIES: No known drug allergies. DIET: Well built lady, denies acute weight loss or gain in the preceding few weeks to months. FAMILY AND SOCIAL HISTORY: Lives in the community. She is . There is a family history of hypertension. She denies alcohol, tobacco or illicit drug use or abuse. REVIEW OF SYSTEMS: No loss of consciousness. She had near syncopal episodes. Denies new onset seizures. Denies new onset focal weakness. Denies gross hematochezia or melena. Denies gross hematuria or dysuria. She denied orthopnea or paroxysmal nocturnal dyspnea, but she did admit to dyspnea on exertion at presentation. Denies palpitations. Denied heat or cold intolerance. Denies polydipsia, polyuria. Complete 13-system review of system was obtained. Pertinent positives and/or negatives are as in the body of history above, otherwise they are noncontributory. She also denied fevers or chills. PHYSICAL EXAMINATION: VITAL SIGNS: At presentation in the Emergency Room, review of vital signs shows that she was afebrile, temperature 98.2 degrees Fahrenheit, pulse of 38, respiratory rate of 24, blood pressure 113/51, O2 sats were 95%, inspired oxygen concentration at that time was not recorded. When I stopped by to see her, her O2 sats were 95% that was on 2 liters nasal cannula. GENERAL: She is an elderly looking female. Normocephalic, atraumatic. Talking with full sentences, but with mildly increased respiratory effort at rest. HEAD, EYES, EARS, NOSE AND THROAT: Anicteric. A little hard of hearing. NECK: No gross jugular venous distention, no thyromegaly. Grossly, there were no palpable lymph nodes in the supraclavicular or submandibular lymph node chains. LUNGS: Auscultation of both lung william significant for diminished bilateral breath sounds, slightly prolonged expiratory phase. No active wheezing. HEART: Sounds 1 and 2 are heard at the time of my evaluation, regular rate and rhythm. I believe was a paced rhythm at the time without overt rubs or murmurs. ABDOMEN: Soft, full, bowel sounds are positive, nontender, no palpable hepatosplenomegaly. EXTREMITIES: Without overt digital clubbing, cyanosis or pedal edema. Pedal pulses are 2+ bilaterally. NEUROLOGIC: Pupils were equal, round, about 4 mm, reactive to light. Extraocular muscle movements are intact. She moves all 4 extremities spontaneously. SKIN: Normal turgor in the areas I examined without overt cellulitis or rash. She had the postop changes to the skin. Please see the wound care nurses' notes for full description of his skin. PSYCHIATRIC: Mood was normal. Affect was appropriate. She had intact judgment and insight. LABORATORY DATA: From my review are as follows: Admission white cell count 9800, hemoglobin 12.7, hematocrit 38.2, platelet count 170. No manual differential. INR 0.90. Serum sodium was 139, potassium 5.0, chloride 107, bicarbonate 23, BUN 22, creatinine 0.8, glucose 109. AST was up at 82, ALT was up at 58. TSH within normal limits as was free T4. Troponin was also within normal limits. No microbiology studies. A chest x-ray was done post-procedure. I have reviewed the chest x-ray as well as the radiologist's interpretation. She has a right IJ pacemaker insertion with the leads projecting over the cardiovascular silhouette, patchy infiltrate/atelectasis in both lung william, right greater than left, especially in the right upper lobe region. No overt pleural effusions. Mildly increased interstitial markings may represent a mild interstitial edema. She does have gross cardiomegaly and some suggestion of pulmonary hypertension with an enlarged pulmonary artery trunk. ASSESSMENT: 1. Symptomatic bradycardia secondary to complete heart block, now status post temporary pacemaker. 2. Complete heart block, now status post temporary pacemaker. 3. History of chronic obstructive pulmonary disease. 4. History of heart failure with a preserved ejection fraction. 5. Elevated serum transaminases. 6. History of hypertension. PLAN: She will be observed in the intensive care unit post temporary pacemaker insertion. We will defer to Cardiology in terms of the timing for permanent pacemaker placement. She will be observed and vasopressors will be titrated to keep the mean arterial pressures greater than or equal to 65 mmHg. Dopamine will be titrated to keep the pulse greater than 60, if it does drop again, but I believe with a temporary pacemaker that should not be an issue. Electrolytes will be followed and corrected as necessary. Secondary prevention issues hypertension control will be deferred to the utility locate technician. I will be starting her on long-acting bronchodilators as well as inhaled corticosteroids for her COPD chronic management. I will hold on systemic steroids. She is appropriately on GI prophylaxis with Protonix. DVT prophylaxis with SCD. Flu and pneumonia vaccination will be addressed per protocol. Thank you very much for the consult. We will follow along and make further recommendations as picture progresses/becomes clearer. Of note, continued tobacco abstinence was strongly counseled. She remains critically ill at very high risk of from cardiopulmonary system decompensation on life-sustaining interventions including the vasopressor support and a temporary pacemaker. At this time, I spent about 35-40 minutes of critical care time without overlap and excluding any procedural time that may be necessary. TID: [id number] RECEIPT: [id number] QUANG/AD
[2022-01-11 05:06] LABS: Hematocrit 41.6 % (30.3-42.9); Hemoglobin 14.2 gm/dl (10.1-14.3); Mean Corpuscular HGB Conc 34 % (30-34); Mean Corpuscular Volume 92 fl (79-97); Platelet Count 167 K/mm3 (140-440); Red Blood Count 4.51 M/mm3 (3.65-5.03); Red Cell Distribution Width 13.2 % (13.2-15.2)
[2022-01-11 05:30] LABS: Alanine Aminotransferase 40 units/L (7-56); Blood Urea Nitrogen 10 mg/dL (7-17); Calcium 8.9 mg/dL (8.4-10.2); Hemolysis Index 5
[2022-01-11 05:31] LABS: BUN/Creatinine Ratio 17
[2022-01-11] MEDS: ARFORMOTEROL 15 MCG/2 ML NEBU IH SCH ×2 (08:21→20:14)
[2022-01-11] MEDS: BUDESONIDE 0.5 MG/2 ML NEBU IH SCH ×2 (08:21→20:14)
--- NOTE | 2022-01-11 08:50 | Progress Note ---
Assessment and Plan Symptomatic bradycardia Complete heart block now s/p TPM COPD H/O HFpEF Elevated serum transaminases HTN - tentatively for PPM in am - repeat LFT's in am - continue care as below otherwise; - continue accuchecks with glycemic control per SSI for target blood glucose < 180 mg/dL - continue to wean supplemental oxygen to keep O2 sats > 90% - continue bronchodilators (JEROMY & LABA) with pulm hygiene per RT - continue inhaled corticosteroids re: COPD - continue to avoid nephrotoxins, renally dose all medications - mobility protocols to prevent pressure ulcers - PT/OT as tolerated - Wound care per RN/WCT - tobacco abstinence strongly counseled at the bedside - home oxygen evaluation at discharge - GI & VTE prophylaxis - Flu & pneumovax per protocol - Pulmonary out patient follow up for PFTs and optimization of respiratory status - continue other care per attending / other consultants - prn analgesia per pain score ... re-evaluate in am & prn Subjective Date of service: 01/11/22 Principal diagnosis: Symptomatic bradycardia; Complete heart block s/p TPM; COPD; H/O HFpEF; HTN Interval history: Patient is seen today for: Symptomatic bradycardia; Complete heart block now s/p TPM; COPD; H/O HFpEF; Elevated serum transaminases; HTN Seen and examined at bedside; 24hour events reviewed; nursing and respiratory care staff consulted; no adverse overnight events reported to me; resting peacefully in bed; apparently with tachy-chuy syndrome; denies acute palpitations or chest pain; no N/V/F/C Objective Vital Signs - 12hr 01/10/22 01/10/22 01/10/22 21:33 22:00 23:32 Temperature 98.5 F 98.2 F Pulse Rate 100 H 92 H Pulse Rate [ 88 From Monitor] Respiratory 18 21 18 Rate Blood Pressure 153/79 138/80 O2 Sat by Pulse 96 96 94 Oximetry 01/11/22 03:54 Temperature 98.4 F Pulse Rate 80 Pulse Rate [ From Monitor] Respiratory 18 Rate Blood Pressure 111/75 O2 Sat by Pulse 94 Oximetry Constitutional: no acute distress Eyes: non-icteric ENT: oropharynx moist Neck: supple, no lymphadenopathy, no JVD Effort: normal Ascultation: Bilateral: diminished breath sounds, rhonchi (scant, bases) Percussion: Bilateral: not dull Cardiovascular: regular rate and rhythm Gastrointestinal: normoactive bowel sounds, soft, non-tender, non-distended Integumentary: normal Extremities: no cyanosis, no edema, pulses normal, no ischemia or petechiae Neurologic: non-focal exam (grossly), pupils equal and round, CN II-XII normal Psychiatric: mood appropriate, affect normal CBC and BMP: 01/11/22 04:48 01/11/22 04:48 ABG, PT/INR, D-dimer: PT/INR, D-dimer PT 13.1 Sec. (12.2-14.9) 01/09/22 11:53 INR 0.90 (0.87-1.13) 01/09/22 11:53 Abnormal lab findings: Abnormal Labs 01/09/22 01/09/22 01/10/22 11:53 11:53 11:29 [place] % (Auto) 8.4 H Chloride 107.4 H BUN 22 H Glucose 109 H POC Glucose 122 H Calcium 8.3 L AST 82 H ALT 58 H 01/11/22 04:48 [place] % (Auto) Chloride BUN Glucose 114 H POC Glucose Calcium AST ALT Allied health notes reviewed: nursing
[2022-01-11] MEDS: amLODIPine 5 MG TAB PO SCH (09:02)
[2022-01-11] MEDS: PANTOPRAZOLE 20 MG TAB PO SCH (09:03)
--- NOTE | 2022-01-11 10:20 | Discharge Summary ---
Providers - Providers Date of Admission: 01/09/22 11:56 Attending physician: NICK SADLER MD 01/09/22 13:15 Consult to Cardiology [CONS] Routine Consulting Provider: ALYSSA OWUSU Reason For Exam: Heart block 01/09/22 13:44 Consult to Physician [CONS] Routine Comment: Consulting Provider: HERNAN FLOWERS Physician Instructions: Reason For Exam: Complete Heart block 01/10/22 10:11 Physical Therapy Evaluation and Treat [CONS] Routine Comment: Reason For Exam: Strenghtening and Conditioning Primary care physician: LIVESTOCK SALES REPRESENTATIVE Hospitalization Reason for admission: heart failure, bradycardia Condition: Stable Hospital course: This is a 81-year old female with known past medical history of NHT and COPD admitted for complete heart block s/p temporary transvenous pacing. Hospital Course to Date: 01/10: s/p temporary pacer removal by Cardiology. SR noted on the monitor, HR in the 80-90s, VSS. 2D echo pending. Norvasc added for BP control, PEN hydralazine for SBP greater than 160. D/w Cardio, patient is stable for transfer to Telemetry. PT consulted. 01/11: Patient seen and examined, clinically stable, no chest pain or shortness of breath, will follow with Cardiology outpatient. Assessment and Plan #Complete Heart Block s/p Temporary Pacer #Acute Diastolic Congestive Feart Failure(CHF) #Hypertension - Presented with generalized weakness and dizziness for about a week - was found in complete HB in the am - Per records patient was on BB for HTN - Cardiology consulted, appreciate recommendations - Temporary transvenous pacer was inserted in cardiovascular lab director, removed 01/10 - Currently in SR on the monitor, HR in the 80-90s, VSS - Norvasc added for BP control - Continue blood pressure monitor per protocol - PRN Hydralazine for SBP greater than 160 - 2D echo pending - Strick I&Os and daily weight #H/o COPD (Chronic Obstructive Pulmonary Disease) - Currently not in any exacerbation - was on PO prednisone at home, currently on hold per CCM - Patient is stable on 2L NC - Continue O2 supplementatin and wean as tolerated - Continue SPO2 monitoring for SPO2 goal above 92% #Transaminitis - Presented with mildly elevated LFTs - Probably reactive to above - Continue to trend LFTs #GI/DVT Prophylaxis - PPI- Protonix - SCDs to bilateral lower extremities while in bed #Advance Care Planning - Disease education data, care plan, diagnoses, and prognosis were discussed with patient at the bedside using the snout puller line. Patient is a FULL code. Patient acknowledged understanding and agreed with current care plan. Patient seen and examined at the bedside. Fully AAO, on 2L NC, still c/o of mild epigastric pain. SR noted on the monitor, HR in the 80-90, VSS. s/p temporary pacer removal by Cardiology. ARASH overnight Disposition: 30 STILL A PATIENT Final Discharge Diagnosis (Prints w/discharge instructions): #Complete Heart Block s/p Temporary Pacer. #Acute Diastolic Congestive Feart Failure(CHF). #Hypertension Time spent for discharge: 35 mins Core Measure Documentation - Palliative Care Palliative Care/ Comfort Measures: Not Applicable - Core Measures Any of the following diagnoses?: none Exam - Physical Exam Narrative exam: General appearance: Present: no acute distress, cachectic - EENT Eyes: Present: PERRL, EOM intact ENT: hearing intact - Neck Neck: Present: normal ROM - Respiratory Respiratory effort: normal Respiratory: bilateral: diminished - Cardiovascular Rhythm: regular Heart Sounds: Present: S1 & S2 - Extremities Extremities: no ischemia, pulses intact, pulses symmetrical Peripheral Pulses: within normal limits - Abdominal General gastrointestinal: soft, non-distended, normal bowel sounds - Integumentary Integumentary: Present: warm, dry - Psychiatric Psychiatric: appropriate mood/affect, cooperative - Neurologic Neurologic: CNII-XII intact, moves all extremities - Allied Health Allied health notes reviewed: nursing, case management - Constitutional Vitals: Temp Pulse Resp BP Pulse Ox 97.4 F L 66 18 130/77 98 01/11/22 08:46 01/11/22 09:02 01/11/22 08:46 01/11/22 08:46 01/11/22 08:46 Plan Activity: advance as tolerated, fall precautions Diet: low fat Special Instructions: record daily weights, record daily BP diary Follow up with: FEMI GRANADO MD [Primary Care Provider] - 3-5 Days ALYSSA OWUSU MD [Staff Physician] - 7 Days
--- NOTE | 2022-01-11 10:22 | Progress Note ---
Assessment and Plan Assessment and plan: This is a 81-year old female with known past medical history of NHT and COPD admitted for complete heart block s/p temporary transvenous pacing. Hospital Course to Date: 01/10: s/p temporary pacer removal by Cardiology. SR noted on the monitor, HR in the 80-90s, VSS. 2D echo pending. Norvasc added for BP control, PEN hydralazine for SBP greater than 160. D/w Cardio, patient is stable for transfer to Telemetry. PT consulted. 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 Assessment and Plan #Complete Heart Block s/p Temporary Pacer #Acute Diastolic Congestive Feart Failure(CHF) #Hypertension - Presented with generalized weakness and dizziness for about a week - was found in complete HB in the am - Per records patient was on BB for HTN - Cardiology consulted, appreciate recommendations - Temporary transvenous pacer was inserted in refuse laborer, removed 01/10 - Currently in SR on the monitor, HR in the 80-90s, VSS - Norvasc added for BP control - Continue blood pressure monitor per protocol - PRN Hydralazine for SBP greater than 160 - 2D echo pending - Strick I&Os and daily weight #H/o COPD (Chronic Obstructive Pulmonary Disease) - Currently not in any exacerbation - was on PO prednisone at home, currently on hold per CCM - Patient is stable on 2L NC - Continue O2 supplementatin and wean as tolerated - Continue SPO2 monitoring for SPO2 goal above 92% #Transaminitis - Presented with mildly elevated LFTs - Probably reactive to above - Continue to trend LFTs #GI/DVT Prophylaxis - PPI- Protonix - SCDs to bilateral lower extremities while in bed #Advance Care Planning - Disease education data, care plan, diagnoses, and prognosis were discussed with patient at the bedside using the collar turner line. Patient is a FULL code. Patient acknowledged understanding and agreed with current care plan. History Interval history: Patient seen and examined no complaints this morning. No overnight complaints reported still with what appears to be tachybradycardia syndrome. Plan for permanent pacemaker in a.m. no new abdominal pain at this time Hospitalist Physical - Physical exam Narrative exam: VITAL SIGNS: Reviewed. GENERAL: The patient appears normally developed, Vital signs as documented. HEAD: No signs of head trauma. EYES: Pupils are equal. Extraocular motions intact. EARS: Hearing grossly intact. MOUTH: Oropharynx is normal. NECK: No adenopathy, no JVD. CHEST: Chest with clear breath sounds bilaterally. No wheezes, rales, or rhonchi. CARDIAC: Regular rate and rhythm. S1 and S2, without murmurs, gallops, or rubs. VASCULAR: No Edema. Peripheral pulses normal and equal in all extremities. ABDOMEN: Soft, non tender and non distended. No rebound or guarding, and no masses palpated. Bowel Sounds normal. MUSCULOSKELETAL: Good range of motion of all major joints. Extremities without clubbing, cyanosis or edema. NEUROLOGIC EXAM: Alert and oriented x 3 No focal sensory or strength defi cits. Speech normal. Follows commands. PSYCHIATRIC: Mood normal. SKIN: detail exam as documented in skin assessment - Constitutional Vitals: Temp Pulse Resp BP Pulse Ox 97.4 F L 66 18 130/77 98 01/11/22 08:46 01/11/22 09:02 01/11/22 08:46 01/11/22 08:46 01/11/22 08:46 General appearance: Present: no acute distress, cachectic HEART Score - HEART Score Troponin: Troponin T < 0.010 ng/mL (0.00-0.029) 01/09/22 11:53 Results - Labs CBC & Chem 7: 01/11/22 04:48 01/11/22 04:48 Labs: Laboratory Last Values WBC 8.5 K/mm3 (4.5-11.0) 01/11/22 04:48 RBC 4.51 M/mm3 (3.65-5.03) 01/11/22 04:48 Hgb 14.2 gm/dl (10.1-14.3) 01/11/22 04:48 Hct 41.6 % (30.3-42.9) 01/11/22 04:48 MCV 92 fl (79-97) 01/11/22 04:48 MCH 31 pg (28-32) 01/11/22 04:48 MCHC 34 % (30-34) 01/11/22 04:48 RDW 13.2 % (13.2-15.2) 01/11/22 04:48 Plt Count 167 K/mm3 (140-440) 01/11/22 04:48 Lymph % (Auto) 24.1 % (13.4-35.0) 01/09/22 11:53 Cottle % (Auto) 8.4 % (0.0-7.3) H 01/09/22 11:53 Eos % (Auto) 1.7 % (0.0-4.3) 01/09/22 11:53 Baso % (Auto) 1.1 % (0.0-1.8) 01/09/22 11:53 Lymph # (Auto) 2.4 K/mm3 (1.2-5.4) 01/09/22 11:53 Cottle # (Auto) 0.8 K/mm3 (0.0-0.8) 01/09/22 11:53 Eos # (Auto) 0.2 K/mm3 (0.0-0.4) 01/09/22 11:53 Baso # (Auto) 0.1 K/mm3 (0.0-0.1) 01/09/22 11:53 Seg Neutrophils % 64.7 % (40.0-70.0) 01/09/22 11:53 Seg Neutrophils # 6.3 K/mm3 (1.8-7.7) 01/09/22 11:53 PT 13.1 Sec. (12.2-14.9) 01/09/22 11:53 INR 0.90 (0.87-1.13) 01/09/22 11:53 Sodium 142 mmol/L (137-145) 01/11/22 04:48 Potassium 4.0 mmol/L (3.6-5.0) 01/11/22 04:48 Chloride 105.0 mmol/L (98-107) 01/11/22 04:48 Carbon Dioxide 27 mmol/L (22-30) 01/11/22 04:48 Anion Gap 14 mmol/L 01/11/22 04:48 BUN 10 mg/dL (7-17) 01/11/22 04:48 Creatinine 0.6 mg/dL (0.6-1.2) 01/11/22 04:48 Estimated GFR > 60 ml/min 01/11/22 04:48 BUN/Creatinine Ratio 17 % 01/11/22 04:48 Glucose 114 mg/dL (65-100) H 01/11/22 04:48 POC Glucose 122 mg/dL (70-105) H 01/10/22 11:29 Calcium 8.9 mg/dL (8.4-10.2) 01/11/22 04:48 Phosphorus 3.10 mg/dL (2.5-4.5) 01/11/22 04:48 Magnesium 2.20 mg/dL (1.7-2.3) 01/11/22 04:48 Total Bilirubin 1.10 mg/dL (0.1-1.2) 01/11/22 04:48 AST 28 units/L (5-40) 01/11/22 04:48 ALT 40 units/L (7-56) 01/11/22 04:48 Alkaline Phosphatase 60 units/L (35-129) 01/11/22 04:48 Troponin T < 0.010 ng/mL (0.00-0.029) 01/09/22 11:53 Total Protein 6.6 g/dL (6.3-8.2) 01/11/22 04:48 Albumin 4.0 g/dL (3.9-5) 01/11/22 04:48 Albumin/Globulin Ratio 1.5 % 01/11/22 04:48 TSH 0.769 mlU/mL (0.270-4.200) 01/09/22 11:53 Free T4 1.08 ng/dL (0.76-1.46) 01/09/22 11:53 Florentino/IV: Voiding Method Bedpan Active Medications - Current Medications Current Medications: Generic Name Dose Route Start Last Admin Trade Name Freq PRN Reason Stop Dose Admin Acetaminophen 650 mg 01/09/22 11:56 Acetaminophen 325 Mg Tab PO Q4H PRN Pain MILD(1-3)/Fever >100.5/DUMOTN Albuterol 2.5 mg 01/09/22 11:56 Albuterol 2.5 Mg/3 Ml Nebu IH Q4HRT PRN Shortness Of Breath Amlodipine Besylate 5 mg 01/10/22 11:00 01/11/22 09:02 Amlodipine 5 Mg Tab PO 5 mg QDAY OSIRIS Administration Arformoterol Tartrate 15 mcg 01/10/22 20:00 01/11/22 08:21 Arformoterol 15 Mcg/2 Ml Nebu IH 15 mcg Q12HRT OSIRIS Administration Atorvastatin Calcium 40 mg 01/10/22 22:00 01/10/22 21:23 Atorvastatin 40 Mg Tab PO 40 mg QHS OSIRIS Administration Budesonide 0.5 mg 01/10/22 20:00 01/11/22 08:21 Budesonide 0.5 Mg/2 Ml Nebu IH 0.5 mg Q12HRT OSIRIS Administration Hydralazine HCl 20 mg 01/10/22 11:00 Hydralazine 20 Mg/1 Ml Inj IV Q4HR PRN Hypertension Ondansetron HCl 4 mg 01/09/22 11:56 Ondansetron 4 Mg/2 Ml Inj IV Q8H PRN Nausea And Vomiting Oxycodone/Acetaminophen 1 tab 01/09/22 11:56 Oxycodone /Acetaminophen 5-325mg Tab PO Q6H PRN Pain, Moderate (4-6) Pantoprazole Sodium 20 mg 01/10/22 10:00 01/11/22 09:03 Pantoprazole 20 Mg Tab PO 20 mg QDAY OSIRIS Administration Sodium Chloride 10 ml 01/09/22 22:00 01/11/22 09:02 Sodium Chloride 0.9% 10 Ml Flush Syringe IV 10 ml BID OSIRIS Administration Sodium Chloride 10 ml 01/09/22 11:56 Sodium Chloride 0.9% 10 Ml Flush Syringe IV PRN PRN LINE FLUSH
--- NOTE | 2022-01-11 11:29 | Progress Note ---
Assessment and Plan 81-year-old [place] female with history of hypertension is on telemetry has sick sinus syndrome as patient had pauses of 2 to 2.5 seconds. Patient was on a very low-dose of beta-adina Toprol-XL 25 mg. Will initiate permanent pacemaker for tomorrow discussed this with the patient and patient's niece and signed consent - Patient Problems (1) Acute diastolic (congestive) heart failure Current Visit: Yes Status: Acute (2) Complete heart block Current Visit: Yes Status: Acute (3) Dizziness Current Visit: Yes Status: Acute (4) Full code status Current Visit: No Status: Acute (5) HTN (hypertension) Current Visit: No Status: Chronic Qualifiers: Hypertension type: primary hypertension Qualified Code(s): I10 - Essential (primary) hypertension Subjective Date of service: 01/11/22 Principal diagnosis: Symptomatic bradycardia; Complete heart block s/p TPM; COPD; H/O HFpEF; HTN Interval history: no fatigue or syncope Objective Vital Signs Temp Pulse Pulse Pulse Resp Resp BP 01/11/22 10:00 88 21 01/11/22 09:02 66 01/11/22 08:46 97.4 F L 95 H 18 130/77 01/11/22 03:54 98.4 F 80 18 111/75 01/10/22 23:32 98.2 F 92 H 18 138/80 01/10/22 22:00 88 21 01/10/22 21:33 98.5 F 100 H 18 153/79 01/10/22 20:50 01/10/22 20:49 97 H 16 01/10/22 15:52 98.1 F 82 18 147/67 01/10/22 12:30 85 19 134/73 01/10/22 12:12 100.1 F H 01/10/22 12:10 89 18 01/10/22 12:00 87 88 21 01/10/22 11:50 88 21 139/75 01/10/22 11:40 79 20 139/75 01/10/22 11:30 85 27 H 139/75 Pulse Ox 01/11/22 10:00 96 01/11/22 09:02 01/11/22 08:46 98 01/11/22 03:54 94 01/10/22 23:32 94 01/10/22 22:00 96 01/10/22 21:33 96 01/10/22 20:50 01/10/22 20:49 01/10/22 15:52 01/10/22 12:30 01/10/22 12:12 01/10/22 12:10 01/10/22 12:00 01/10/22 11:50 01/10/22 11:40 01/10/22 11:30 - Physical Examination General: No Apparent Distress HEENT: Positive: PERRL, Mucus Membranes Moist Neck: Positive: neck supple, trachea midline Cardiac: Positive: Reg Rate and Rhythm Lungs: Positive: clear to auscultation Neuro: Positive: Grossly Intact Abdomen: Positive: Soft Skin: Positive: Clear Musculoskeletal: No Pain Extremities: Present: normal - Labs and Meds Cardiac Enzymes 01/11/22 Range/Units 04:48 AST 28 (5-40) units/L CBC 01/11/22 Range/Units 04:48 WBC 8.5 (4.5-11.0) K/mm3 RBC 4.51 (3.65-5.03) M/mm3 Hgb 14.2 (10.1-14.3) gm/dl Hct 41.6 (30.3-42.9) % Plt Count 167 (140-440) K/mm3 Comprehensive Metabolic Panel 01/11/22 Range/Units 04:48 Sodium 142 (137-145) mmol/L Potassium 4.0 (3.6-5.0) mmol/L Chloride 105.0 (98-107) mmol/L Carbon Dioxide 27 (22-30) mmol/L BUN 10 (7-17) mg/dL Creatinine 0.6 (0.6-1.2) mg/dL Glucose 114 H (65-100) mg/dL Calcium 8.9 (8.4-10.2) mg/dL AST 28 (5-40) units/L ALT 40 (7-56) units/L Alkaline Phosphatase 60 (35-129) units/L Total Protein 6.6 (6.3-8.2) g/dL Albumin 4.0 (3.9-5) g/dL - Imaging and Cardiology Stress echo: report reviewed (2020 negative Lexiscan EKG) Echo: report reviewed (2020 normal LV function without significant regurgitation repeat 01/10/22 no change) - Telemetry EKG Rhythm: Sinus Rhythm (pauses four times from 2 to 2.5 seconds) - EKG Sinus rhythms and dysrhythmias: sinus rhythm - Allied health notes Allied health notes reviewed: nursing
--- NOTE | 2022-01-11 16:50 | Electrocardiograph Report ---
[facility] Test Date: 2022-01-09 Test Time: 11:25:22 Pat Name: ASA WALLER Department: Room: A473 1 Gender: F Gynaecological Oncologist: OLINDA : 1940 Requested By: SAE BRAY Order Number: [id number] Reading MD: Hubert Evans Measurements Intervals [place] Rate: 41 P: MN: QRS: 29 QRSD: 77 T: 98 QT: 526 QTc: 416 Interpretive Statements Junctional rhythm Nonspecific ST elevation, consider early repolarization versus acute injury No previous ECG available for comparison Electronically Signed On 01-11-2022 16:50:24 EDT by Hubert Evans
[2022-01-12 06:00] LABS: Basophils % (Auto) 0.5 % (0.0-1.8); Eosinophils # (Auto) 0.2 K/mm3 (0.0-0.4); Eosinophils % (Auto) 2.4 % (0.0-4.3); Hematocrit 43.3 % (30.3-42.9); Hemoglobin 14.4 gm/dl (10.1-14.3); Lymphocytes % (Auto) 22.8 % (13.4-35.0); Mean Corpuscular HGB Conc 33 % (30-34); Mean Corpuscular Volume 93 fl (79-97); Monocytes # (Auto) 0.8 K/mm3 (0.0-0.8); Monocytes % (Auto) 9.2 % (0.0-7.3); Platelet Count 187 K/mm3 (140-440); Red Blood Count 4.66 M/mm3 (3.65-5.03)
[2022-01-12 06:07] LABS: INR 0.92 (0.87-1.13)
[2022-01-12 06:17] LABS: Blood Urea Nitrogen 11 mg/dL (7-17); Hemolysis Index 2
[2022-01-12 06:18] LABS: BUN/Creatinine Ratio 16
--- NOTE | 2022-01-12 08:53 | Progress Note ---
Assessment and Plan Assessment and plan: Assessment and plan: This is a 81-year old female with known past medical history of NHT and COPD admitted for complete heart block s/p temporary transvenous pacing. Hospital Course to Date: 01/10: s/p temporary pacer removal by Cardiology. SR noted on the monitor, HR in the 80-90s, VSS. 2D echo pending. Norvasc added for BP control, PEN hydralazine for SBP greater than 160. D/w Cardio, patient is stable for transfer to Telemetry. PT consulted. 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 Discussed with cardiology concern is not for tachybradycardia syndrome but sick sinus syndrome as patient was still experiencing pauses overnight. Pacemaker planned for a.m. and hopefully discharge within 24 hours if no complications. 01/12: Permanent PPM planned today. Discussed case with Dr. Araya this AM. Anticipate dc in next 24 hrs. Assessment and Plan #Complete Heart Block s/p Temporary Pacer #Sick Sinus Syndrome #Acute Diastolic Congestive Feart Failure(CHF) #Hypertension - Presented with generalized weakness and dizziness for about a week - was found in complete HB in the am - Per records patient was on BB for HTN - Cardiology consulted, appreciate recommendations - Temporary transvenous pacer was inserted in r and d lab technician, removed 01/10 - Currently in SR on the monitor, HR in the 80-90s, VSS - Norvasc added for BP control - Continue blood pressure monitor per protocol - PRN Hydralazine for SBP greater than 160 - 2D echo pending - Strick I&Os and daily weight - plan for permanent PPM on 01/12. #H/o COPD (Chronic Obstructive Pulmonary Disease) - Currently not in any exacerbation - was on PO prednisone at home, currently on hold per CCM - Patient is stable on 2L NC - Continue O2 supplementatin and wean as tolerated - Continue SPO2 monitoring for SPO2 goal above 92% #Transaminitis - Presented with mildly elevated LFTs - Probably reactive to above - Continue to trend LFTs #GI/DVT Prophylaxis - PPI- Protonix - SCDs to bilateral lower extremities while in bed #Advance Care Planning - Disease education data, care plan, diagnoses, and prognosis were discussed with patient at the bedside using the precision lens grinder line. Patient is a FULL code. Patient acknowledged understanding and agreed with current care plan. History Interval history: no acute issues and does not appear to be in any distress this AM. Hospitalist Physical - Physical exam Narrative exam: General: No Apparent Distress HEENT: Positive: PERRL, Mucus Membranes Moist Neck: Positive: neck supple, trachea midline Cardiac: Positive: Reg Rate and Rhythm Lungs: Positive: clear to auscultation Neuro: Positive: Grossly Intact Abdomen: Positive: Soft Skin: Positive: Clear Musculoskeletal: No Pain Extremities: Present: normal - Constitutional Vitals: Temp Pulse Resp BP Pulse Ox 98.5 F 89 18 133/71 96 01/12/22 03:56 01/12/22 08:01 01/12/22 08:01 01/12/22 03:56 01/12/22 08:01 General appearance: Present: no acute distress, cachectic HEART Score - HEART Score Troponin: Troponin T < 0.010 ng/mL (0.00-0.029) 01/09/22 11:53 Results - Labs CBC & Chem 7: 01/12/22 05:03 01/12/22 05:03 Labs: Laboratory Last Values WBC 8.7 K/mm3 (4.5-11.0) 01/12/22 05:03 RBC 4.66 M/mm3 (3.65-5.03) 01/12/22 05:03 Hgb 14.4 gm/dl (10.1-14.3) H 01/12/22 05:03 Hct 43.3 % (30.3-42.9) H 01/12/22 05:03 MCV 93 fl (79-97) 01/12/22 05:03 MCH 31 pg (28-32) 01/12/22 05:03 MCHC 33 % (30-34) 01/12/22 05:03 RDW 13.0 % (13.2-15.2) L 01/12/22 05:03 Plt Count 187 K/mm3 (140-440) 01/12/22 05:03 Lymph % (Auto) 22.8 % (13.4-35.0) 01/12/22 05:03 Rooks % (Auto) 9.2 % (0.0-7.3) H 01/12/22 05:03 Eos % (Auto) 2.4 % (0.0-4.3) 01/12/22 05:03 Baso % (Auto) 0.5 % (0.0-1.8) 01/12/22 05:03 Lymph # (Auto) 2.0 K/mm3 (1.2-5.4) 01/12/22 05:03 Rooks # (Auto) 0.8 K/mm3 (0.0-0.8) 01/12/22 05:03 Eos # (Auto) 0.2 K/mm3 (0.0-0.4) 01/12/22 05:03 Baso # (Auto) 0.0 K/mm3 (0.0-0.1) 01/12/22 05:03 Seg Neutrophils % 65.1 % (40.0-70.0) 01/12/22 05:03 Seg Neutrophils # 5.7 K/mm3 (1.8-7.7) 01/12/22 05:03 PT 13.4 Sec. (12.2-14.9) 01/12/22 05:03 INR 0.92 (0.87-1.13) 01/12/22 05:03 Sodium 144 mmol/L (137-145) 01/12/22 05:03 Potassium 4.2 mmol/L (3.6-5.0) 01/12/22 05:03 Chloride 105.8 mmol/L (98-107) 01/12/22 05:03 Carbon Dioxide 26 mmol/L (22-30) 01/12/22 05:03 Anion Gap 16 mmol/L 01/12/22 05:03 BUN 11 mg/dL (7-17) 01/12/22 05:03 Creatinine 0.7 mg/dL (0.6-1.2) 01/12/22 05:03 Estimated GFR > 60 ml/min 01/12/22 05:03 BUN/Creatinine Ratio 16 % 01/12/22 05:03 Glucose 108 mg/dL (65-100) H 01/12/22 05:03 POC Glucose 122 mg/dL (70-105) H 01/10/22 11:29 Calcium 9.0 mg/dL (8.4-10.2) 01/12/22 05:03 Phosphorus 3.10 mg/dL (2.5-4.5) 01/11/22 04:48 Magnesium 2.20 mg/dL (1.7-2.3) 01/11/22 04:48 Total Bilirubin 1.10 mg/dL (0.1-1.2) 01/11/22 04:48 AST 28 units/L (5-40) 01/11/22 04:48 ALT 40 units/L (7-56) 01/11/22 04:48 Alkaline Phosphatase 60 units/L (35-129) 01/11/22 04:48 Troponin T < 0.010 ng/mL (0.00-0.029) 01/09/22 11:53 Total Protein 6.6 g/dL (6.3-8.2) 01/11/22 04:48 Albumin 4.0 g/dL (3.9-5) 01/11/22 04:48 Albumin/Globulin Ratio 1.5 % 01/11/22 04:48 TSH 0.769 mlU/mL (0.270-4.200) 01/09/22 11:53 Free T4 1.08 ng/dL (0.76-1.46) 01/09/22 11:53 Florentino/IV: Voiding Method Bedpan Active Medications - Current Medications Current Medications: Generic Name Dose Route Start Last Admin Trade Name Freq PRN Reason Stop Dose Admin Acetaminophen 650 mg 01/09/22 11:56 Acetaminophen 325 Mg Tab PO Q4H PRN Pain MILD(1-3)/Fever >100.5/DUMONT Albuterol 2.5 mg 01/09/22 11:56 Albuterol 2.5 Mg/3 Ml Nebu IH Q4HRT PRN Shortness Of Breath Amlodipine Besylate 5 mg 01/10/22 11:00 01/11/22 09:02 Amlodipine 5 Mg Tab PO 5 mg QDAY OSIRIS Administration Arformoterol Tartrate 15 mcg 01/10/22 20:00 01/11/22 20:14 Arformoterol 15 Mcg/2 Ml Nebu IH 15 mcg Q12HRT OSIRIS Administration Atorvastatin Calcium 40 mg 01/10/22 22:00 01/11/22 21:53 Atorvastatin 40 Mg Tab PO 40 mg QHS OSIRIS Administration Budesonide 0.5 mg 01/10/22 20:00 01/11/22 20:14 Budesonide 0.5 Mg/2 Ml Nebu IH 0.5 mg Q12HRT OSIRIS Administration Hydralazine HCl 20 mg 01/10/22 11:00 Hydralazine 20 Mg/1 Ml Inj IV Q4HR PRN Hypertension Ondansetron HCl 4 mg 01/09/22 11:56 Ondansetron 4 Mg/2 Ml Inj IV Q8H PRN Nausea And Vomiting Oxycodone/Acetaminophen 1 tab 01/09/22 11:56 Oxycodone /Acetaminophen 5-325mg Tab PO Q6H PRN Pain, Moderate (4-6) Pantoprazole Sodium 20 mg 01/10/22 10:00 01/11/22 09:03 Pantoprazole 20 Mg Tab PO 20 mg QDAY OSIRIS Administration Sodium Chloride 10 ml 01/09/22 22:00 01/11/22 21:53 Sodium Chloride 0.9% 10 Ml Flush Syringe IV 10 ml BID OSIRIS Administration Sodium Chloride 10 ml 01/09/22 11:56 Sodium Chloride 0.9% 10 Ml Flush Syringe IV PRN PRN LINE FLUSH
[2022-01-12] MEDS: BUDESONIDE 0.5 MG/2 ML NEBU IH SCH ×2 (09:14→20:56)
[2022-01-12] MEDS: ARFORMOTEROL 15 MCG/2 ML NEBU IH SCH ×2 (09:14→20:56)
--- NOTE | 2022-01-12 09:23 | Electrocardiograph Report ---
[facility] Test Date: 2022-01-11 Test Time: 10:56:03 Pat Name: ASA WALLER Department: Room: A473 1 Gender: F Drier Tender Naphthalene: TOMMY : 1940 Requested By: MIKAYLA GAONA Order Number: [id number] Reading MD: Lenin Araya Measurements Intervals [place] Rate: 89 P: 68 ND: 157 QRS: -16 QRSD: 72 T: 93 QT: 351 QTc: 429 Interpretive Statements Sinus rhythm Ventricular premature complex Compared to ECG 01/09/2022 11:25:22 Ventricular premature complex(es) now present Junctional rhythm no longer present Possible ischemia no longer present Electronically Signed On 01-12-2022 9:23:34 EDT by Lenin Araya
[2022-01-12] MEDS: PANTOPRAZOLE 20 MG TAB PO SCH (11:24)
[2022-01-12] MEDS: amLODIPine 5 MG TAB PO SCH (11:24)
--- NOTE | 2022-01-12 11:41 | Progress Note ---
Assessment and Plan Patient is 81-year female past medical hypertension COPD who presented with complaints of dizziness and weakness. Found to have Sick sinus syndrome Hypertension COPD Echo 01/09/2022-EF 55 to 60%. Mild to moderate concentric LVH. Right ventricular systolic function is normal. No aortic regurgitation is present. Plan: Telemetry review patient continues to have intermittent pauses on monitor Patient for PPM today. Patient currently n.p.o. Further recommendations following following placement of PPM - Patient Problems (1) Acute diastolic (congestive) heart failure Current Visit: Yes Status: Acute (2) COPD (chronic obstructive pulmonary disease) Current Visit: Yes Status: Acute (3) Complete heart block Current Visit: Yes Status: Acute (4) Dizziness Current Visit: Yes Status: Acute (5) HTN (hypertension) Current Visit: No Status: Chronic Qualifiers: Hypertension type: primary hypertension Qualified Code(s): I10 - Essential (primary) hypertension Subjective Date of service: 01/12/22 Principal diagnosis: Symptomatic bradycardia; Complete heart block s/p TPM; COPD; H/O HFpEF; HTN Interval history: Patient resting in bed in no acute distress Sinus on monitor with pauses. Patient awaiting PPM placement Objective Vital Signs Temp Pulse Pulse Pulse Resp Resp BP 01/12/22 09:16 01/12/22 08:01 89 18 01/12/22 08:00 87 19 01/12/22 03:56 98.5 F 81 18 133/71 01/12/22 00:00 89 01/11/22 22:00 97.6 F 89 89 18 01/11/22 20:16 01/11/22 20:15 91 H 16 01/11/22 19:51 98.6 F 88 18 145/76 01/11/22 15:59 98.2 F 90 18 134/73 01/11/22 12:00 81 01/11/22 11:42 98.2 F 86 18 120/70 BP Pulse Ox 01/12/22 09:16 94 01/12/22 08:01 96 01/12/22 08:00 01/12/22 03:56 96 01/12/22 00:00 01/11/22 22:00 137/75 96 01/11/22 20:16 95 01/11/22 20:15 01/11/22 19:51 95 01/11/22 15:59 92 01/11/22 12:00 09/05/22 11:42 93 - Physical Examination General: No Apparent Distress HEENT: Positive: PERRL, Mucus Membranes Moist Neck: Positive: neck supple, trachea midline Cardiac: Positive: Reg Rate and Rhythm Lungs: Positive: Normal Breath Sounds Neuro: Positive: Grossly Intact Abdomen: Positive: Soft Skin: Positive: Clear Musculoskeletal: No Pain Extremities: Present: normal - Labs and Meds Coagulation 01/12/22 Range/Units 05:03 PT 13.4 (12.2-14.9) Sec. INR 0.92 (0.87-1.13) CBC 01/12/22 Range/Units 05:03 WBC 8.7 (4.5-11.0) K/mm3 RBC 4.66 (3.65-5.03) M/mm3 Hgb 14.4 H (10.1-14.3) gm/dl Hct 43.3 H (30.3-42.9) % Plt Count 187 (140-440) K/mm3 Lymph # (Auto) 2.0 (1.2-5.4) K/mm3 [place] # (Auto) 0.8 (0.0-0.8) K/mm3 Eos # (Auto) 0.2 (0.0-0.4) K/mm3 Baso # (Auto) 0.0 (0.0-0.1) K/mm3 Comprehensive Metabolic Panel 01/12/22 Range/Units 05:03 Sodium 144 (137-145) mmol/L Potassium 4.2 (3.6-5.0) mmol/L Chloride 105.8 (98-107) mmol/L Carbon Dioxide 26 (22-30) mmol/L BUN 11 (7-17) mg/dL Creatinine 0.7 (0.6-1.2) mg/dL Glucose 108 H (65-100) mg/dL Calcium 9.0 (8.4-10.2) mg/dL - Imaging and Cardiology Stress echo: report reviewed (2020 negative Lexiscan EKG) Echo: report reviewed (2020 normal LV function without significant regurgitation repeat 01/10/22 no change) - Telemetry EKG Rhythm: Sinus Rhythm - EKG Sinus rhythms and dysrhythmias: sinus rhythm - Allied health notes Allied health notes reviewed: nursing
--- NOTE | 2022-01-12 12:25 | Progress Note ---
Assessment and Plan Symptomatic bradycardia Complete heart block now s/p TPM COPD H/O HFpEF Elevated serum transaminases HTN - tentatively for PPM today - keep NPO - repeat LFT's WNL - continue care as below otherwise; - continue accuchecks with glycemic control per SSI for target blood glucose < 180 mg/dL - continue to wean supplemental oxygen to keep O2 sats > 90% - continue bronchodilators (JEROMY & LABA) with pulm hygiene per RT - continue inhaled corticosteroids re: COPD - continue to avoid nephrotoxins, renally dose all medications - mobility protocols to prevent pressure ulcers - PT/OT as tolerated - Wound care per RN/WCT - tobacco abstinence strongly counseled at the bedside - home oxygen evaluation at discharge - GI & VTE prophylaxis - Flu & pneumovax per protocol - Pulmonary out patient follow up for PFTs and optimization of respiratory status - continue other care per attending / other consultants - prn analgesia per pain score ... re-evaluate in am & prn Subjective Date of service: 01/12/22 Principal diagnosis: Symptomatic bradycardia; Complete heart block s/p TPM; COPD; H/O HFpEF; HTN Interval history: Patient is seen today for: Symptomatic bradycardia; Complete heart block now s/p TPM; COPD; H/O HFpEF; Elevated serum transaminases; HTN Seen and examined at bedside; 24hour events reviewed; nursing and respiratory care staff consulted; no adverse overnight events reported to me; resting peacefully in bed; Objective Vital Signs - 12hr 01/12/22 01/12/22 01/12/22 03:56 08:00 08:01 Temperature 98.5 F Pulse Rate 81 Pulse Rate [ 89 From Monitor] Pulse Rate [ 87 Throughout] Respiratory 18 18 Rate Respiratory 19 Rate [ Throughout] Blood Pressure 133/71 O2 Sat by Pulse 96 96 Oximetry 01/12/22 09:16 Temperature Pulse Rate Pulse Rate [ From Monitor] Pulse Rate [ Throughout] Respiratory Rate Respiratory Rate [ Throughout] Blood Pressure O2 Sat by Pulse 94 Oximetry Constitutional: no acute distress Eyes: non-icteric ENT: oropharynx moist Neck: supple, no lymphadenopathy, no JVD Effort: normal Ascultation: Bilateral: diminished breath sounds, rhonchi (scant, bases) Percussion: Bilateral: not dull Cardiovascular: regular rate and rhythm Gastrointestinal: normoactive bowel sounds, soft, non-tender, non-distended Integumentary: normal Extremities: no cyanosis, no edema, pulses normal, no ischemia or petechiae Neurologic: non-focal exam (grossly), pupils equal and round, CN II-XII normal Psychiatric: mood appropriate, affect normal CBC and BMP: 01/12/22 05:03 01/12/22 05:03 ABG, PT/INR, D-dimer: PT/INR, D-dimer PT 13.4 Sec. (12.2-14.9) 01/12/22 05:03 INR 0.92 (0.87-1.13) 01/12/22 05:03 Abnormal lab findings: Abnormal Labs 01/09/22 01/09/22 01/10/22 11:53 11:53 11:29 Hgb Hct RDW [place] % (Auto) 8.4 H Chloride 107.4 H BUN 22 H Glucose 109 H POC Glucose 122 H Calcium 8.3 L AST 82 H ALT 58 H 01/11/22 01/12/22 01/12/22 04:48 05:03 05:03 Hgb 14.4 H Hct 43.3 H RDW 13.0 L [place] % (Auto) 9.2 H Chloride BUN Glucose 114 H 108 H POC Glucose Calcium AST ALT Allied health notes reviewed: nursing
[2022-01-12] MEDS ORDERED: SODIUM CHLORIDE IRRI 1000 ML 1,000 ML, .VANCOMYCIN VIAL 1,000 MG IR ONE (13:43)
[2022-01-12] MEDS ORDERED: MIDAZOLAM 2 MG/2 ML INJ ONE ×2 (14:24)
[2022-01-12] MEDS ORDERED: fentaNYL 100 MCG/2 ML INJ ONE (14:24)
[2022-01-12] MEDS ORDERED: propofoL 200 MG/20 ML VIAL IV ONE ×4 (14:25)
[2022-01-12] MEDS ORDERED: KETAMINE/STERILE WATER 50 MG/ML SYRINGE ONE (14:26)
[2022-01-12] MEDS ORDERED: ePHEDrine SULFATE 50 MG/1 ML INJ ONE (14:27)
--- NOTE | 2022-01-12 14:47 | Anesthesia Day of Surgery ---
Anesthesia Day of Surgery - Day of Surgery Patient Examined: Yes Patient H&P Reviewed: Yes Patient is NPO: Yes Cardiac Clearance: Yes
[2022-01-12] MEDS ORDERED: SODIUM CHLORIDE 0.9% 1000 ML 1,000 ML ONE (14:49)
--- NOTE | 2022-01-12 14:51 | Anesthesia Consultation ---
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 Improved now) - Other Systems Hx Obesity: No - Additional Comments Anesthesia Medical History Comments: Speaks limited Turkmen-most history from chart. 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 Stress echo: report reviewed (2020 negative Lexiscan EKG). Echo: report reviewed (2020 normal LV function without significant regurgitation repeat 01/10/22 no change)
[2022-01-12] MEDS ORDERED: SODIUM CHLORIDE IRRI 1000 ML 1,000 ML, .VANCOMYCIN VIAL 1,000 MG IR NR (15:00)
[2022-01-12] MEDS ORDERED: SODIUM CHLORIDE IRRI 500 ML 500 ML IR ONE (15:03)
[2022-01-12] MEDS ORDERED: ceFAZolin/Water 2 GM/20 ML 2 GM/20 ML SYRINGE IV ONE (15:04)
[2022-01-12] MEDS ORDERED: BUPIVACAINE/PF (0.5%) 5 MG/1 ML 30 ML VIAL INFILTRATI ONE (15:04)
[2022-01-12] MEDS ORDERED: LIDOCAINE (2%) 20 MG/1 ML VIAL 20 ML MDV INFILTRATI ONE (15:06)
--- NOTE | 2022-01-12 17:53 | XRay Report ---
CHEST 1 VIEW 01/12/2022 5:35 PM INDICATION / CLINICAL INFORMATION: Pacemaker Postop. COMPARISON: 01/09/2022. FINDINGS: SUPPORT DEVICES: Pacemaker unchanged. HEART / MEDIASTINUM: Stable. LUNGS / PLEURA: Mild increased interstitial markings and underlying changes of COPD remain. No new in filtrate. No pneumothorax. ADDITIONAL FINDINGS: No significant additional findings. IMPRESSION: No significant change. Signer Name: Diogo Zuleta MD Signed: 01/12/2022 5:49 PM Workstation Name: [facility]
--- NOTE | 2022-01-12 19:12 | Post Anesthesia Evaluation ---
- Post Anesthesia Evaluation Patient Participated: Yes Airway Patent: Yes Stable Respiratory Function: Yes Nausea/Vomiting: No Temp > 96.8F: Yes Pain Manageable: Yes Adequeate Hydration: Yes Anesthesia Complications: No Block Receding Appropriately: Not Applicable Patient on Ventilator: No
[2022-01-12] MEDS: ceFAZolin/NS 1 GM/50 ML 1 GM/50 ML BAG IV SCH (23:45)
[2022-01-13 04:41] VITALS: BP 119/68
[2022-01-13 05:24] LABS: Basophils % (Auto) 0.4 % (0.0-1.8); Eosinophils # (Auto) 0.1 K/mm3 (0.0-0.4); Eosinophils % (Auto) 1.4 % (0.0-4.3); Hematocrit 41.3 % (30.3-42.9); Hemoglobin 13.7 gm/dl (10.1-14.3); Lymphocytes # (Auto) 1.8 K/mm3 (1.2-5.4); Lymphocytes % (Auto) 20.4 % (13.4-35.0); Mean Corpuscular HGB Conc 33 % (30-34); Mean Corpuscular Volume 93 fl (79-97); Monocytes # (Auto) 0.7 K/mm3 (0.0-0.8); Monocytes % (Auto) 8.4 % (0.0-7.3); Platelet Count 179 K/mm3 (140-440); Red Blood Count 4.44 M/mm3 (3.65-5.03)
[2022-01-13 05:37] LABS: BUN/Creatinine Ratio 17; Blood Urea Nitrogen 10 mg/dL (7-17); Calcium 8.6 mg/dL (8.4-10.2); Hemolysis Index 17
[2022-01-13] MEDS: ceFAZolin/NS 1 GM/50 ML 1 GM/50 ML BAG IV SCH (07:38)
--- NOTE | 2022-01-13 09:34 | Discharge Summary ---
Providers - Providers Date of Admission: 01/09/22 11:56 Date of discharge: 01/13/22 Attending physician: FIDE MCCLURE MD 01/09/22 13:15 Consult to Cardiology [CONS] Routine Consulting Provider: ALYSSA ARAYA Reason For Exam: Heart block 01/09/22 13:44 Consult to Physician [CONS] Routine Comment: Consulting Provider: HERNAN FLOWERS Physician Instructions: Reason For Exam: Complete Heart block 01/10/22 10:11 Physical Therapy Evaluation and Treat [CONS] Routine Comment: Reason For Exam: Strenghtening and Conditioning 01/12/22 16:59 Consult to Cardiac Rehabilitation [CONS] Routine Reason For Exam: Cardiac Rehab Evaluation Primary care physician: PHOTO TUBE ASSEMBLER Hospitalization Reason for admission: complete heart block Condition: Stable Hospital course: Assessment and plan: This is a 81-year old female with known past medical history of NHT and COPD adm itted for complete heart block s/p temporary transvenous pacing. Hospital Course to Date: 01/10: s/p temporary pacer removal by Cardiology. SR noted on the monitor, HR in the 80-90s, VSS. 2D echo pending. Norvasc added for BP control, PEN hydralazine for SBP greater than 160. D/w Cardio, patient is stable for transfer to Telemetry. PT consulted. 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 Discussed with cardiology concern is not for tachybradycardia syndrome but sick sinus syndrome as patient was still experiencing pauses overnight. Pacemaker planned for a.m. and hopefully discharge within 24 hours if no complications. 01/12: Permanent PPM planned today. Discussed case with Dr. Araya this AM. Anticipate dc in next 24 hrs. 01/13 ;Discharge home today. PPM care instructions per cardiology and RN. instructed patient to follow up with Dr Araya in his office. Will send rx for norvasc, rosuvastatin, and lansoprazole Assessment and Plan #Complete Heart Block s/p Temporary Pacer #Sick Sinus Syndrome #Acute Diastolic Congestive Feart Failure(CHF) #Hypertension - Presented with generalized weakness and dizziness for about a week - was found in complete HB in the am - Per records patient was on BB for HTN - Cardiology consulted, appreciate recommendations - Temporary transvenous pacer was inserted in lab rn, removed 01/10 - Currently in SR on the monitor, HR in the 80-90s, VSS - Norvasc added for BP control - Continue blood pressure monitor per protocol - PRN Hydralazine for SBP greater than 160 - 2D echo pending - Strick I&Os and daily weight - plan for permanent PPM on 01/12. #H/o COPD (Chronic Obstructive Pulmonary Disease) - Currently not in any exacerbation - was on PO prednisone at home, currently on hold per CCM - Patient is stable on 2L NC - Continue O2 supplementatin and wean as tolerated - Continue SPO2 monitoring for SPO2 goal above 92% #Transaminitis - Presented with mildly elevated LFTs - Probably reactive to above - Continue to trend LFTs #GI/DVT Prophylaxis - PPI- Protonix - SCDs to bilateral lower extremities while in bed #Advance Care Planning - Disease education data, care plan, diagnoses, and prognosis were discussed with patient at the bedside using the center sales and service associate line. Patient is a FULL code. Patient acknowledged understanding and agreed with current care plan. Disposition: HOME / SELF CARE / HOMELESS Final Discharge Diagnosis (Prints w/discharge instructions): sick sinus syndrome, bradycardia, complete heart block, acute diastolic congestive heart failure, hypertension Time spent for discharge: 35 Core Measure Documentation - Palliative Care Palliative Care/ Comfort Measures: Not Applicable - Core Measures Any of the following diagnoses?: none Exam - Physical Exam Narrative exam: General: No Apparent Distress HEENT: Positive: PERRL, Mucus Membranes Moist Neck: Positive: neck supple, trachea midline Cardiac: Positive: Reg Rate and Rhythm Lungs: Positive: clear to auscultation Neuro: Positive: Grossly Intact Abdomen: Positive: Soft Skin: Positive: Clear Musculoskeletal: No Pain Extremities: Present: normal - Constitutional Vitals: Temp Pulse Resp BP Pulse Ox 97.8 F 82 18 119/68 96 01/13/22 04:19 01/13/22 07:00 01/13/22 07:00 01/13/22 04:19 01/13/22 07:00 Plan Follow up with: FEMI GRANADO MD [Primary Care Provider] - 3-5 Days ALYSSA ARAYA MD [Staff Physician] - 7 Days Prescriptions: amLODIPine 5 mg PO QDAY 30 Days #30 tablet Lansoprazole [Prevacid 24Hr] 15 mg PO QDAY 14 Days #14 tab Rosuvastatin Calcium 20 mg PO HS 30 Days #30 tab
[2022-01-13] MEDS: BUDESONIDE 0.5 MG/2 ML NEBU IH SCH (09:48)
[2022-01-13] MEDS: ARFORMOTEROL 15 MCG/2 ML NEBU IH SCH (09:48)
[2022-01-13] MEDS: PANTOPRAZOLE 20 MG TAB PO SCH (09:50)
[2022-01-13] MEDS: amLODIPine 5 MG TAB PO SCH (09:50)
--- NOTE | 2022-01-13 13:10 | Progress Note ---
Assessment and Plan Patient is 81-year female past medical hypertension COPD who presented with complaints of dizziness and weakness. Found to have Sick sinus syndrome s/p PPM Hypertension COPD Echo 01/09/2022-EF 55 to 60%. Mild to moderate concentric LVH. Right ventricular systolic function is normal. No aortic regurgitation is present. Plan: Telemetry reviewed patient sinus rhythm with no events CXR showed no pneumothorax, device was checked this a.m. by rep and shown to be functioning properly Cardiac status otherwise stable for discharge Patient has a follow-up with the device clinic on 01/22/2022 at 3 PM in our [place] location Patient should follow with Dr. Araya, [facility] director heart, in 1 to 2 weeks of discharge. #[phone] Patient seen in conjunction with Dr. Schmid who agrees this plan of care - Patient Problems (1) Acute diastolic (congestive) heart failure Status: Acute (2) COPD (chronic obstructive pulmonary disease) Status: Acute (3) Complete heart block Status: Acute (4) Dizziness Status: Acute (5) HTN (hypertension) Status: Chronic Qualifiers: Hypertension type: primary hypertension Qualified Code(s): I10 - Essential (primary) hypertension Subjective Date of service: 01/13/22 Principal diagnosis: Symptomatic bradycardia; Complete heart block s/p TPM; COPD; H/O HFpEF; HTN Interval history: Patient resting in bed in no acute distress Sinus on monitor with no events Objective Vital Signs Temp Pulse Pulse Pulse Resp Resp BP 01/13/22 07:00 82 18 01/13/22 04:19 97.8 F 83 20 119/68 01/13/22 00:51 97.6 F 85 20 115/71 01/13/22 00:00 82 01/12/22 22:00 82 18 01/12/22 20:58 87 18 01/12/22 19:26 98.2 F 83 18 137/79 01/12/22 17:46 74 76 H 121/79 01/12/22 17:30 79 79 H 126/82 01/12/22 17:19 98.2 F 76 76 H 128/97 Pulse Ox 01/13/22 07:00 96 01/13/22 04:19 99 01/13/22 00:51 98 01/13/22 00:00 01/12/22 22:00 96 01/12/22 20:58 98 01/12/22 19:26 100 01/12/22 17:46 100 01/12/22 17:30 93 01/12/22 17:19 95 - Physical Examination General: No Apparent Distress HEENT: Positive: PERRL, Mucus Membranes Moist Neck: Positive: neck supple, trachea midline Cardiac: Positive: Reg Rate and Rhythm Lungs: Positive: Normal Breath Sounds Neuro: Positive: Grossly Intact Abdomen: Positive: Soft Skin: Positive: Clear Incision: Incision Site (Dressing clean dry and intact with no bleeding or hematoma) Musculoskeletal: No Pain Extremities: Present: normal - Labs and Meds CBC 01/13/22 Range/Units 05:01 WBC 8.8 (4.5-11.0) K/mm3 RBC 4.44 (3.65-5.03) M/mm3 Hgb 13.7 (10.1-14.3) gm/dl Hct 41.3 (30.3-42.9) % Plt Count 179 (140-440) K/mm3 Lymph # (Auto) 1.8 (1.2-5.4) K/mm3 [place] # (Auto) 0.7 (0.0-0.8) K/mm3 Eos # (Auto) 0.1 (0.0-0.4) K/mm3 Baso # (Auto) 0.0 (0.0-0.1) K/mm3 Comprehensive Metabolic Panel 01/13/22 Range/Units 05:01 Sodium 138 (137-145) mmol/L Potassium 4.3 (3.6-5.0) mmol/L Chloride 104.9 (98-107) mmol/L Carbon Dioxide 23 (22-30) mmol/L BUN 10 (7-17) mg/dL Creatinine 0.6 (0.6-1.2) mg/dL Glucose 107 H (65-100) mg/dL Calcium 8.6 (8.4-10.2) mg/dL - Imaging and Cardiology Stress echo: report reviewed (2020 negative Lexiscan EKG) Echo: report reviewed (2020 normal LV function without significant regurgitation repeat 01/10/22 no change) - Telemetry EKG Rhythm: Sinus Rhythm - EKG Sinus rhythms and dysrhythmias: sinus rhythm - Allied health notes Allied health notes reviewed: nursing
--- NOTE | 2022-01-14 10:23 | Electrocardiograph Report ---
[facility] Test Date: 2022-01-12 Test Time: 17:45:57 Pat Name: ASA WALLER Department: Room: A473 1 Gender: F Stone Sawyer: PAUL : 1940 Requested By: FIDE MCCLURE Order Number: [id number] Reading MD: Armand Schmid Measurements Intervals [place] Rate: 76 P: 68 MO: 162 QRS: -1 QRSD: 82 T: 93 QT: 400 QTc: 450 Interpretive Statements Sinus rhythm Nonspecific T abnormalities, lateral leads Electronically Signed On 01-14-2022 10:22:54 EDT by Armand Schmid
--- NOTE | 2022-01-14 10:30 | Electrocardiograph Report ---
[facility] Test Date: 2022-01-13 Test Time: 07:01:10 Pat Name: ASA WALLER Department: Room: A473 1 Gender: F Lead Application Architect: TOMMY : 1940 Requested By: VENANCIO JEFFERS Order Number: [id number] Reading MD: Armand Schmid Measurements Intervals [place] Rate: 82 P: 69 [place]: 157 QRS: -16 QRSD: 70 T: 89 QT: 372 QTc: 436 Interpretive Statements Sinus rhythm NON-SPECIFIC ST-T WAVE CHANGE laterally Compared to ECG 01/11/2022 10:56:03 ST (T wave) deviation now present Myocardial infarct finding now present Ventricular premature complex(es) no longer present Electronically Signed On 01-14-2022 10:30:55 EDT by Armand Schmid
== END 2022-01-13 12:35 | disposition home or self-care (01) | DRG 242 ==
LOC: ED 11:04 → CC1 11:56 → 4A 01-10 12:56
PROVIDERS: ADMIT Internal Medicine; ATTEND Internal Medicine
PROC: 5A1223Z Performance of Cardiac Pacing, Continuous (ICD-10-PCS; principal; 2022-01-09)
PROC: 02HK3MZ Insertion of Cardiac Lead into Right Ventricle, Percutaneous Approach (ICD-10-PCS; 2022-01-09)
PROC: 0JH606Z Insertion of Pacemaker, Dual Chamber into Chest Subcutaneous Tissue and Fascia, Open Approach (ICD-10-PCS; 2022-01-12)
PROC: 02H63JZ Insertion of Pacemaker Lead into Right Atrium, Percutaneous Approach (ICD-10-PCS; 2022-01-12)
PROC: 02HK3JZ Insertion of Pacemaker Lead into Right Ventricle, Percutaneous Approach (ICD-10-PCS; 2022-01-12)
DX: I44.2 Atrioventricular block, complete (principal); I50.31 Acute diastolic (congestive) heart failure; J44.9 Chronic obstructive pulmonary disease, unspecified; I49.5 Sick sinus syndrome; I11.0 Hypertensive heart disease with heart failure; Z82.49 Family history of ischemic heart disease and other diseases of the circulatory system; Z90.49 Acquired absence of other specified parts of digestive tract
CPT/HCPCS: 33208; 33210; 36415; 71045; 80048; 80053; 82962; 83735; 84100; 84439; 84443; 84484; 85025; 85027; 85610; 93005; 93306; 94640; 94760; G0378; J3490; C1785; C1892; C1894; C1898; C8929; J0690; J1644; J2250; J2704; J3010; J7030; Q9967